=== PATIENT | male | born 1965 | race Caucasian/White ===

== ENCOUNTER 2018-07-05 13:01 | Inpatient (IN) | payer MEDICARE, MEDICAID ==
[~2018-07-05] VITALS: Ht 172.7 cm; Wt 126.6 kg
--- NOTE | 2018-07-05 13:05 | NUR ---
[facility] , AMS MORE THAN NORMAL BS 129 FINISHED DIALYSIS , PT ALSO C/O CHILLS. TO ER BED 9, HOOKED TO MONITOR, CHANGED TO GOWN, AWAITING MD GRAJEDA
[2018-07-05 13:28] LABS: BASOPHILS # (AUTO) 0.1 /CMM (0.0-0.2); EOSINOPHILS % (AUTO) 6.3 % (0.0-6.0); HEMATOCRIT 37 % (39-51); HEMOGLOBIN 11.7 g/dL (13.5-17.5); LYMPHOCYTES % (AUTO) 13.5 % (20.0-44.0); MEAN CORPUSCULAR HGB CONC 32 g/dl (31.0-36.0); MEAN CORPUSCULAR VOLUME 94 fL (80-96); MONOCYTES # (AUTO) 0.5 /CMM (0.1-1.30); MONOCYTES % (AUTO) 6.6 % (2.0-12.0); NEUTROPHILS # (AUTO) 5.6 /CMM (1.8-8.9); NEUTROPHILS % (AUTO) 72.6 % (43.0-81.0); PLATELET COUNT (AUTO) 131 /CMM (150-450); WHITE BLOOD COUNT (AUTO) 7.7 K/uL (4.3-11.0)
[2018-07-05] MEDS ORDERED: VANCOMYCIN 1 GM in IV D5W 250 ML IV ONE (13:30)
[2018-07-05] MEDS ORDERED: IV NS 0.9% 500 ML BAG IV ONE (13:30)
[2018-07-05 13:47] LABS: CALCIUM, SERUM 8.2 mg/dL (8.5-10.1); CREATININE 5.1 mg/dL (0.6-1.3); POTASSIUM 4.6 mmol/L (3.5-5.1)
[2018-07-05 13:51] LABS: ALBUMIN 3.7 g/dL (3.4-5.0); BILIRUBIN,DIRECT 0.1 mg/dL (0.0-0.2); BILIRUBIN,TOTAL 0.3 mg/dL (0.2-1.0); TOTAL PROTEIN, SERUM 7.5 g/dL (6.4-8.2)
[2018-07-05] MEDS ORDERED: SENN-168 PO (14:58)
[2018-07-05] MEDS ORDERED: CARV12.52 PO (14:58)
[2018-07-05] MEDS ORDERED: ATOR10TA PO (14:58)
[2018-07-05] MEDS ORDERED: LOSA25TA27 PO (14:58)
[2018-07-05] MEDS ORDERED: ACID1TAB12 PO (14:58)
[2018-07-05] MEDS ORDERED: INSU100V10 SQ (14:58)
[2018-07-05] MEDS ORDERED: CLON0.1T PO (14:58)
[2018-07-05] MEDS ORDERED: POLY17PO4 PO (14:58)
[2018-07-05] MEDS ORDERED: PROM6.256 PO (14:58)
[2018-07-05] MEDS ORDERED: FOLI0.8T23 PO (14:58)
[2018-07-05] MEDS ORDERED: PANT40TA2 PO (14:58)
[2018-07-05] MEDS ORDERED: CALC667C6 PO (14:58)
[2018-07-05] MEDS ORDERED: GABA-532 PO (14:58)
[2018-07-05] MEDS ORDERED: ASPI-1169 PO (14:58)
[2018-07-05] MEDS ORDERED: IPRA3AMP23 NEB (15:00)
[2018-07-05] MEDS ORDERED: INSU100I4 SQ (15:00)
[2018-07-05] MEDS ORDERED: ASPIRIN 325 MG TABLET ONE (15:10)
[2018-07-05 15:16] LABS: APPEARANCE,URINE SL CLOUDY (CLEAR); BILIRUBIN,URINE NEGATIVE (NEGATIVE); BLOOD, URINE 2+ Ery/uL (NEGATIVE); COLOR,URINE YELLOW (YELLOW); KETONES,URINE NEGATIVE (NEGATIVE); LEUKOCYTE ESTERASE ,URINE TRACE (NEGATIVE); NITRITE, URINE NEGATIVE (NEGATIVE); PH,URINE 5.5 (5.0-8.0); PROTEIN,URINE 3+ mg/dl (NEGATIVE); UGLUCOSE NEGATIVE (NEGATIVE); UROBILINOGEN,URINE 0.2 EU/dL (0.2)
--- NOTE | 2018-07-05 15:16 | NUR ---
PAGED EPIC FOR ADMITTING HOSPITALIST
[2018-07-05] MEDS ORDERED: ASPIRIN 325 MG TABLET PO ONE (15:30)
[2018-07-05 15:34] LABS: BACTERIA,URINE Rare /HPF (None Seen)
[2018-07-05 15:35] LABS: SQUAMOUS EPITHELIAL CELL,UR Few /HPF (None Seen)
[2018-07-05] MEDS ORDERED: PROMETHAZINE HCL SYRUP 6.25 MG/5 ML UDC PO PRN (16:00)
[2018-07-05] MEDS ORDERED: CLONIDINE HCL 0.1 MG TABLET PO PRN (16:00)
[2018-07-05] MEDS ORDERED: DEXTROSE 50%-WATER 50 ML DISP.SYRIN IV PRN (16:00)
[2018-07-05] MEDS ORDERED: MAG HYDROX/AL HYDROX/SIMETH 30 ML UDC PO PRN (16:00)
[2018-07-05] MEDS ORDERED: ACETAMINOPHEN 325 MG TABLET PO PRN (16:00)
[2018-07-05] MEDS ORDERED: ONDANSETRON HCL/PF 4 MG/2 ML VIAL IVP PRN (16:00)
[2018-07-05] MEDS ORDERED: MAGNESIUM HYDROXIDE 30 ML UDC PO PRN (16:00)
[2018-07-05] MEDS ORDERED: Z GUARD REMEDY 2 OZ OINT TP PRN (16:00)
[2018-07-05] MEDS ORDERED: POLYETHYLENE GLYCOL 3350 17 GM POWD.PACK PO PRN (16:00)
--- NOTE | 2018-07-05 16:06 | NUR ---
REPORT GIVEN TO SANDRA GARCIA, TO ROOM 111-2, ADMITTING DX: CHEST PAIN, ADMITTING MD: TRACI ALY
[2018-07-05] MEDS ORDERED: IPRATROPIUM NEB FS 0.5 MG/2.5 ML AMPUL.NEB NEB PRN (16:30)
--- NOTE | 2018-07-05 16:30 | NUR ---
LENS SILVERER PATIENT RECEIVED FROM E.R. DEPT. A/OX4, DENIES CHEST PAIN. SKIN ASSESSMENT COMPLETED, SKIN DRY AND INTACT, NOTED WITH BLE EDEMA +3. PATIENT IN NO DISTRESS. NEEDS ATTENDED, CALL LIGHT WITHIN REACH, WILL CONTINUE TO MONITOR.
[2018-07-05] MEDS: CARVEDILOL 12.5 MG TABLET PO SCH (17:00)
[2018-07-05] MEDS: LOSARTAN POTASSIUM 25 MG TABLET PO SCH (17:00)
[2018-07-05] MEDS: GABAPENTIN 100 MG CAPSULE PO SCH (18:03)
[2018-07-05] MEDS: SENNOSIDES 8.6 MG TABLET PO SCH (18:04)
[2018-07-05] MEDS: CALCIUM ACETATE 667 MG TABLET PO SCH (18:04)
[2018-07-05] MEDS: BLOOD SUGAR DIAGNOSTIC 1 EACH STRIP IN SCH ×2 (18:04→22:00)
--- NOTE | 2018-07-05 18:46 | NUR ---
INITIAL ECHO FINDINGS SHOWED EF 25-30%~ W/ SEVERE PULM HTN 56mmHg. ADVISED JOSE FLORES AND CHARGE NURSE SOON OF PRELIMINARY RESULTS.
--- NOTE | 2018-07-05 19:00 | NUR ---
RN NOTES PAGED TRACI DELATORRE TONGUE LINING STITCHER AND MADE AWARE OF EF 25-30%, PER TONGUE LINING STITCHER, PATIENT NEEDS CARDIO CONSULT.
--- NOTE | 2018-07-05 19:10 | NUR ---
RN NOTES PATIENT A/OX4, BREATHING EVEN AND UNLABORED, NO SOB NOTED, AT BEDSIDE, KEPT COMFORTABLE, ATE DINNER, DENIES CHEST PAIN AT THIS TIME. NEEDS ATTENDED AND MET, CALL RUTH ORTIZ, [facility]
[2018-07-05] MEDS ORDERED: ALBUTEROL FS 2.5 MG/0.5 ML VIAL.NEB NEB PRN (19:30)
--- NOTE | 2018-07-05 19:47 | NUR ---
RN OPENING NOTES RECEIVED PT IN BED, AWAKE ALERT AND ORIENTED X4, WITH AND SON AT BEDSIDE. BREATHING EVEN AND UNLABORED ON 2L NC SATING AT 98. IV ACCESS ON THE R FA g20 SL PATENT AND FLUSHING. BED IN LOWEST LOCKED POSITION, CALL LIGHT WITHIN REACH AT ALL TIMES, WILL CONTINUE TO MONITOR
[2018-07-05] MEDS: ATORVASTATIN 10 MG TABLET PO SCH (21:09)
[2018-07-05] MEDS: PANTOPRAZOLE 40 MG TABLET.DR PO SCH (21:10)
[2018-07-05] MEDS: HEPARIN SODIUM, PORCINE 5000 UNITS/1 ML VIAL SQ SCH (21:11)
[2018-07-05] MEDS: INSULIN REGULAR, HUMAN 100 UNIT/ML 3 ML VIAL SQ PRN (21:12)
[2018-07-05] MEDS: INSULIN GLARGINE, 100 UNIT/ML CARTRIDGE SQ SCH (21:12)
[2018-07-05] MEDS ORDERED: MENTHOL/CETYLPYRD (CEPACOL) 1 LOZ LOZENGE PO PRN (22:00)
[2018-07-05] MEDS ORDERED: TEMAZEPAM 7.5 MG CAPSULE PO PRN (22:00)
[2018-07-06] VITALS (51 sets, daily range): BP systolic 83–187; BP diastolic 29–117
[2018-07-06] MEDS: HYDROCODONE/APAP 5/325MG 1 EACH TABLET PO PRN (01:38)
--- NOTE | 2018-07-06 03:30 | NUR ---
HERBARIUM CURATOR NOTE PT PRESENTED WITH INCREASED CONFUSION, RESTLESSNESS AND DESATURATING TO THE LOW 80'S ON 2 L NC, BREATHING TREATMENT GIVEN BY RT WHO RECOMMENDED ABG BE DRAWN, PAGED MD SANITATION LABORER AND GOT STAT ABG ORDER. VENOUS WAS DRAWN INSTEAD OF ARTERIAL, CO2 WAS 83. HR MOMENTARILY WENT DOWN TO THE LOW 40s AND THEN BACK UP TO 60-70s A FEW TIMES. TRANSFERRED PT TO ICU ROOM 257, TO PLACE PT ON BIPAP, MD AWARE. REPORT GIVEN TO JOSE EID
--- NOTE | 2018-07-06 03:44 | NUR ---
ICU/RN-RECEIVED PT. FROM TELE-1 VIA BED PER ACLS, ACCOMPANIED BY RTS AND TELE STAFF. NURSING FOCUS:ALTERED RESPIRATORY STATUS R/T DIAGNOSIS. PT. IS LETHARGIC , AROUSABLE ORIENTED TO SELF, ABLE TO FOLLOW SIMPLE COMMANDS, NOT IN ANY DISTRESS. PT. IMMEDIATELY HOOKED UP BY RT TO THE BIPAP W/ THE FOLLOWING SETTINGS:I/E-20/5, RATE-20. FIO2-35%, SATS.-97%, NOT IN ANY DISTRESS. EKG ATRIAL FIB W/ HR-66. WILL CONTINUE TO MONITOR PER PROTOCOL. WILL RECHECK ABGS IN 30 MINS. AND WILL REFER ACCORDINGLY NEEDED. PT. IS A FULL CODE. DENIES PAIN OR DISCOMFORT. AFEBRILE. TEMPT.-98.1/F
[2018-07-06 03:54] LABS: ABG BASE EXCESS 2.3 mmol/L; ABG PCO2 83.5 mmHg (35.0-45.0); ABG PH 7.206 (7.350-7.450); ABG PO2 31.8 mmHg (75.0-100.0); COHb 1.2 % (0.5-1.5); MetHb 0.4 % (0.0-1.5); O2Hb 55.1 % (94.0-97.0); SITE, ABG Right Radial
--- NOTE | 2018-07-06 03:56 | NUR ---
PT ARRIVED ALTERED FROM [facility] AND WAS TRANSFERRED TO ICU, WHERE HE WAS PLACED ON BIPAP PER MD YANG ORDER, BIPAP SETTING: I/E 20/5 RATE 20 FIO2 30%. SKIN BARRIER APPLIED ON BRIDGE OF NOSE. CHARGE NURSE MARGARITO AWARE, PT TOLERATING BIPAP AND WILL CONTINUE TO MONITOR Addendum: 07/06/18 at 0405 by REBECA BAUM RT Amended: Links added.
--- NOTE | 2018-07-06 03:56 | NUR ---
RT BLOOD DRAWN WAS VENOUS BLOOD AND NOT ARTERIAL. MD AND RN AWARE. PER MD ORDERS PLACE PT ON BIPAP AND FOLLOW UP ABG.
--- NOTE | 2018-07-06 04:00 | NUR ---
ICU/RN- SISTER ANN HERE TO SEE PT. SPOKE TO SAME THE PLAN OF CARE AND PT. STATUS. SAME CONCERNABOUT PT. STATUS AND ABDOMINAL DISCOMFORT. ON ASSESSMENT. ABDOMEN IS SLIGHTLY FIRM AND DISTENDED W/ HYPOACTIVE BOWEL SOUNDS. WILL CONTINUE TO MONITOR AND REFER NEEDED.
--- NOTE | 2018-07-06 04:00 | NUR ---
ORDERS FOR RESTORIL AND LOZENGES BUT UNDER WRONG MD, D/Keron AND REORDERED BY CORRECT CDL PROGRAM COORDINATOR MD, RESTORIL GIVEN UNDER THE WRONG MD.
[2018-07-06] MEDS ORDERED: TEMAZEPAM 7.5 MG CAPSULE PO PRN (04:30)
[2018-07-06] MEDS ORDERED: MENTHOL/CETYLPYRD (CEPACOL) 1 LOZ LOZENGE PO PRN (04:30)
--- NOTE | 2018-07-06 04:40 | NUR ---
ICU/RN- RT DAVID HERE TO DRAW BLOOD FOR ABGS ON PT.
[2018-07-06 04:44] LABS: ABG BASE EXCESS -0.4 mmol/L; ABG OXYGEN SATURATION 92.1 % (92.0-98.5); ABG PCO2 86.5 mmHg (35.0-45.0); ABG PH 7.162 (7.350-7.450); ABG PO2 77.1 mmHg (75.0-100.0); AaDO2 71.9 mmHg; COHb 1.1 % (0.5-1.5); MetHb 0.3 % (0.0-1.5); O2Hb 90.8 % (94.0-97.0); PEEP,BG 5 cm H2O; SITE, ABG Right Radial; VENT MODE, BG BIPAP
--- NOTE | 2018-07-06 05:00 | NUR ---
ICU/RN-DR. DOCKERY ER TO INTUBATE PT. ON ASSESSMENT SAME MD STATED, THAT DUE TO PT H/O TRACH AND PT. NECK ANATOMY, WOULD REQUEST ANESTHESIA TO INTUBATE PT. DR. MCCLURE SPOKE TO NURSING SUP. SILVA AND WILL NOTIFY ANESTHESIA THERMODYNAMICS TEACHER ROLAN. PT. REMAINS VERY LETHARGIC, ON BIPAP FIO2-100%. SATS-97%, NOT IN ANY DISTRESS.
--- NOTE | 2018-07-06 05:00 | NUR ---
ICU/RN- DR. YANG NOTIFIED OF PT. ABGS RESULTS, WORST THAN PRIOR. W/ ORDERS TO INTUBATE PT. BY ER MD AND PULMONARY CONSULT.
--- NOTE | 2018-07-06 05:58 | NUR ---
PT WAS ORALLY INTUBATED BY ANESTHESIA DR ROSARIO WITH A 7.5 ETT @ 25CM LIPLINE, POSITIVE COLOR CHANGE ON CAP, BILATERAL BREATH SOUNDS AND CHEST RISE. PT WAS PLACED ON [facility] VENT AC R 22 VT 550 100%O2 PEEP +5. PT AMBU BAG AT BEDSIDE, [facility] VENT ALARMS ARE SET AND AUDIBLE, BRAKES LOCKED, AND VENT PLUGGED INTO RED OUTLET. PT WAS SUCTIONED APPROX 10CC OF THICK GOOD SECRETIONS DRAWN. JOSE PIMENTEL MADE AWARE OF SETTINGS AND WAS ALSO NOTIFIED THAT SPUTUM WAS COLLECTED. PENDING XRAY REPORT AND POST INTUBATION ABG. WILL NOTIFY THE FOLLOWING THERAPIST TO DRAW GAS Addendum: 07/06/18 at 0646 by REBECA BAUM RT Amended: Links added.
[2018-07-06 06:07] LABS: BASOPHILS # (AUTO) 0.1 /CMM (0.0-0.2); EOSINOPHILS % (AUTO) 6.8 % (0.0-6.0); HEMATOCRIT 39 % (39-51); HEMOGLOBIN 12.2 g/dL (13.5-17.5); LYMPHOCYTES % (AUTO) 13.5 % (20.0-44.0); MEAN CORPUSCULAR HGB CONC 32 g/dl (31.0-36.0); MEAN CORPUSCULAR VOLUME 95 fL (80-96); MONOCYTES # (AUTO) 0.4 /CMM (0.1-1.30); MONOCYTES % (AUTO) 5.2 % (2.0-12.0); NEUTROPHILS # (AUTO) 5.5 /CMM (1.8-8.9); NEUTROPHILS % (AUTO) 73.5 % (43.0-81.0); PLATELET COUNT (AUTO) 146 /CMM (150-450); RED BLOOD CELL COUNT(AUTO) 4.11 MIL/uL (4.5-6.0); WHITE BLOOD COUNT (AUTO) 7.5 K/uL (4.3-11.0)
--- NOTE | 2018-07-06 06:10 | NUR ---
ICU/RN- PCXR POST INTUBATION DONE BY RADIOLOGY.
--- NOTE | 2018-07-06 06:15 | NUR ---
ICU/RN- PT. STARTED GETTING AGITATED, DR. BARROW NOTIFIED BY PHONE, REGARDING PT. STATUS AND CONSULT W/ ORDERS FOR DIPRIVAN DRIP AND MARTHA. SOFT WRIST RESTRAINTS NEEDED PER PROTOCOL.
--- NOTE | 2018-07-06 06:18 | NUR ---
ICU/RN- PT. REMAINS AGITATED, MARTHA. SOFT WRIST RESTRAINTS APPLIED TO MARTHA. WRIST. DIPRIVAN DRIP STARTED AT 5 MCG/KG/IN. PER PROTOCOL. WILL TITRATE TO EFFECT.
[2018-07-06] MEDS: PROPOFOL 100 ML IV PRN ×3 (06:23→21:33)
[2018-07-06 06:30] LABS: CALCIUM, SERUM 8.7 mg/dL (8.5-10.1); CREATININE 6.7 mg/dL (0.6-1.3); MAGNESIUM 2.3 mg/dL (1.8-2.4); PHOSPHORUS 7.4 mg/dL (2.5-4.9); POTASSIUM 5.7 mmol/L (3.5-5.1)
[2018-07-06 06:40] LABS: THYROID STIMULATING HORMONE 1.949 uIU/mL (0.358-3.74)
--- NOTE | 2018-07-06 07:10 | NUR ---
RN INITIAL NOTES RECEIVED PT INTUBATED, ON VENT. NO RESPIRATORY DISTRESS NOTED. NO SOB NOTED. HOB ELEVATED. RIJ PERMACATH IN PLACE. ON DIPRIVAN AT 2.5MCG/KG/MIN. PT NPO. PT CLEAN AND DRY. BLE ELEVATED. WILL MONITOR.
[2018-07-06 07:36] LABS: ABG BASE EXCESS -0.4 mmol/L; ABG OXYGEN SATURATION 98.6 % (92.0-98.5); ABG PCO2 52.1 mmHg (35.0-45.0); ABG PO2 302.4 mmHg (75.0-100.0); AaDO2 358.5 mmHg; COHb 0.2 % (0.5-1.5); MetHb 0.4 % (0.0-1.5); PEEP,BG 5 cm H2O; SITE, ABG Left Radial; VENT MODE, BG AC 22 550 100% +5; VT, ABG 550 mL
[2018-07-06] MEDS: BLOOD SUGAR DIAGNOSTIC 1 EACH STRIP IN SCH ×4 (08:29→21:16)
[2018-07-06] MEDS: HEPARIN SODIUM, PORCINE 5000 UNITS/1 ML VIAL SQ SCH ×2 (08:30→21:18)
--- NOTE | 2018-07-06 08:52 | NUR ---
RT NOTE RECEIVED PT MECHANICALLY VENTILATED VIA 7.5 ETT 25CM AT LIP. CUFF INFLATED. ETT SECURE. SETTINGS FOLLOW AC 22 550 100% +5. FIO2 LOWERED TO 50% POST ABG. RN NOTIFIED. ALARMS SET PER PROTOCOL AND AUDIBLE. VENT PLUGGED IN TO RED OUTLET. AMBU BAG AT BED SIDE. NO DISTRESS NOTED AT MOMENT. Addendum: 07/06/18 at 0855 by SABA LAZAR RT Amended: Links added.
[2018-07-06] MEDS: ACIDOPHILUS/BULGARICUS 1 EACH TAB.CHEW PO SCH (09:00)
[2018-07-06] MEDS: VIT B CMPLX 3/FA/VIT C/BIOTIN 1 TAB TABLET PO SCH (09:00)
[2018-07-06] MEDS: ASPIRIN 81 MG TAB.CHEW PO SCH (09:00)
[2018-07-06] MEDS: SENNOSIDES 8.6 MG TABLET PO SCH ×2 (09:00→16:17)
[2018-07-06] MEDS: LOSARTAN POTASSIUM 25 MG TABLET PO SCH ×2 (09:00→16:17)
[2018-07-06] MEDS: PANTOPRAZOLE 40 MG TABLET.DR PO SCH ×3 (09:00→21:16)
[2018-07-06] MEDS: CALCIUM ACETATE 667 MG TABLET PO SCH ×3 (09:00→16:17)
[2018-07-06] MEDS: GABAPENTIN 100 MG CAPSULE PO SCH ×3 (09:00→16:17)
[2018-07-06] MEDS: CARVEDILOL 12.5 MG TABLET PO SCH ×2 (09:00→16:17)
--- NOTE | 2018-07-06 09:37 | NUR ---
RN NOTES 0815 SEEN AND EXAMINED BY DR MCINTOSH. REVIEWED H&P, CURRENT LAB VALUES AND CXR RESULT. PT INTUBATED, ON VENT. NO SOB NOTED. ON DIPRIVAN AT 2.5MCG/KG/MIN. PT ABLE TO FOLLOW SIMPLE COMMANDS. UNABLE TO INCREASE DIPRIVAN D/T FLUCTUATING BP AND HR. WILL MONITOR. 0845 SEEN AND EXAMINED BY TRACI DELATORRE NP. AWARE OF CURRENT LAB VALUES: POTASSIUM 5.7, BUN 55, CREA 6.7. PT ON HD. WILL CONTINUE TO MONITOR 0900 SEEN AND EXAMINED BY DR REMY. AWARE OF PT'S STATUS. PT INTUBATED, ON VENT. NO SOB NOTED. PT ON DIPRIVAN. WILL CONTINUE TO MONITOR 0930 SEEN AND EXAMINED BY DR TEE WOLF. ORDERED HD TODAY AND BLOOD CX WITH HD.
[2018-07-06] MEDS ORDERED: FEE PK DOSING 1 MIN EA MC ONE (10:49)
[2018-07-06] MEDS ORDERED: VANCOMYCIN 1 GM in IV D5W 250 ML IV ONE ×2 (11:00→14:00)
[2018-07-06] MEDS ORDERED: VANCOMYCIN 500 MG in IV D5W 100 ML IV PRN (11:00)
[2018-07-06] MEDS ORDERED: FEE EMEERGENCY 1 MIN EA MC ONE (12:07)
[2018-07-06] MEDS ORDERED: SUCCINYLCHOLINE CHLORIDE 20 MG/ML VIAL IV ONE (12:07)
[2018-07-06] MEDS ORDERED: ETOMIDATE 2 MG/ML VIAL IV ONE (12:07)
--- NOTE | 2018-07-06 14:00 | NUR ---
RN NOTES 1000 HD STARTED. VS WNL. WILL MONITOR. 1400 HD DONE. REMOVED 3L. TOLERATED HD WELL. VS WNL. WILL CONTINUE TO MONITOR.
[2018-07-06] MEDS ORDERED: ACETAMINOPHEN 650 MG/SUPP.RECT RC PRN (15:00)
[2018-07-06] MEDS: PIPERACILLIN /TAZOBACTAM 2.25 G in IV D5W 50 ML IV SCH (16:20)
--- NOTE | 2018-07-06 18:28 | NUR ---
RN CLOSING NOTES NO SIGNIFICANT CHANGE NOTED. PT REMAINS INTUBATED, ON VENT. NO RESPIRATORY DISTRESS NOTED. ON DIPRIVAN, TITRATED ACCORDINGLY. MIDLINE IN PLACE. KEPT CLEAN AND DRY. REPOSITIONED Q2. KEPT COMFORTABLE. WILL ENDORSE FOR CONTINUITY OF CARE.
[2018-07-06] MEDS: IPRATROPIUM NEB FS 0.5 MG/2.5 ML AMPUL.NEB NEB SCH (19:38)
[2018-07-06] MEDS: ALBUTEROL FS 2.5 MG/0.5 ML VIAL.NEB NEB SCH (19:38)
--- NOTE | 2018-07-06 19:38 | NUR ---
RECEIVED PT INTUBATED 7.5 ETT SECURED@ 25CM AT THE LIP, PT IS SEDATED. NO RESP DISTRESS NOTED AT THIS TIME. PT TOLERATING VENT SETTINGS. BREATHING TX GIVEN , NO ADVERSE REACTION NOTED. SUCTIONED MODERATE AMOUNT OF PALE YELLOW/GOOD SECRETIONS. VENT ALARMS SET AND AUDIBLE. AMBU BAG AT BEDSIDE. ETT SECURE, CUFF MANPOWER DEVELOPMENT MANAGER. WILL CONTINUE TO MONITOR.
--- NOTE | 2018-07-06 19:45 | NUR ---
ICU/ORDER EXPEDITER RECEIVED REPORT FROM DAY NURSE. SEE FLOWSHEET FOR ASSESSMENT, THERE IS NO SKIN ISSUES THAT ARE ADDRESSED.PT WAS TURNED AND REPOSITIONED FOR COMFORT AND CARE. PT APPEARS TO BE COMFORTABLE ON 20MCG OF SEDATION. .
[2018-07-06] MEDS: ATORVASTATIN 10 MG TABLET PO SCH ×2 (21:16→22:00)
[2018-07-06] MEDS: INSULIN GLARGINE, 100 UNIT/ML CARTRIDGE SQ SCH (21:17)
--- NOTE | 2018-07-06 21:50 | NUR ---
ICU/TRANSFORMATION LEAD PT'S BLOOS SUGAR IS 85, THERE IS NO COVERAGE FOR THIS AND LANTUS WAS HELD DUE TO THE PT IS CURRENTLY NPO. WILL CONTINUE TO MONITOR THIS PT'S SUGAR ORDERED PER MD ORDERS.
[2018-07-07] VITALS (35 sets, daily range): BP systolic 99–177; BP diastolic 45–124
[2018-07-07] MEDS: PIPERACILLIN /TAZOBACTAM 2.25 G in IV D5W 50 ML IV SCH ×4 (00:17→23:38)
--- NOTE | 2018-07-07 00:30 | NUR ---
ICU/VENDING SERVICE TECHNICIAN PT'S BLOOD SUGAR IS 94, THERE IS NO COVERAGE FOR THIS. THE LANTUS FROM 2199 WAS HELD DUE TO THE PT IS CURRENTLY NPO. WILL CONTINUE TO MONITOR THIS PT'S SUGAR ORDERED PER MD ORDERS.
[2018-07-07] MEDS: MORPHINE SULFATE INJ 4 MG/ML DISP.SYRIN IV PRN ×2 (00:58→05:02)
--- NOTE | 2018-07-07 01:02 | NUR ---
ICU/BENEFITS ANALYST PO MEDICATION NOT GIVEN DUE TO NO NGT OR GT. THESE WERE NOT ADMINISTERED ON THE SEP.
--- NOTE | 2018-07-07 01:03 | NUR ---
ICU/SENIOR ADVISORY USING FLACC SCALE, PT'S PAIN IS 8/10. MORPHINE IVP WAS GIVEN BY CHARGE NURSE WHO WAS INFORMED ABOUT THE CHANGE IN PT'S STATUS. PT WAS TURNED AND REPOSITIONED FOR COMFORT AND CARE. WILL CONTINUE TO MONITOR PT'S PAIN LEVEL. ALSO BLOOD PRESSURE INCREASED TO 170/93.
[2018-07-07] MEDS: ALBUTEROL FS 2.5 MG/0.5 ML VIAL.NEB NEB SCH ×4 (01:33→19:53)
[2018-07-07] MEDS: IPRATROPIUM NEB FS 0.5 MG/2.5 ML AMPUL.NEB NEB SCH ×4 (01:33→19:53)
[2018-07-07] MEDS: PROPOFOL 100 ML IV PRN (02:58)
--- NOTE | 2018-07-07 04:10 | NUR ---
ICU/PLSQL DEVELOPER RT DECREASED FIO2 DOWN TO 40 FROM 50. TODAY PT IS GOING TO BE WINGED FROM A/C TO SIMV
--- NOTE | 2018-07-07 04:39 | NUR ---
ICU/COLD REDUCTION ROLLER PT BECAME SOMEWHAT RESTLESS AFTER BATH, NOTIFIED CHARGE NURSE ABOUT THIS. SEDATION WAS INCREASED TO 25 FROM 20 MCG. WILL CONTINUE TO MONITOR THIS PT.
--- NOTE | 2018-07-07 05:08 | NUR ---
ICU/MANAGER APPLICATION PT'S WAS TURNED AND REPOSITIONED, HOWEVER PT'S BLOOD PRESSURE INCREASED TO 177/70. PT APPEARS TO BE IN PAIN. FLACC SCALE USED TO DETERMIN THAT PAIN IS 8-10/10. NOTIFIED CHARGE NURSE WHO THEN GAVE PRN MORPHINE IVP FOR THIS. WILL CONTINUE TO MONITOR PT'S PAIN LEVEL.
[2018-07-07 05:15] LABS: POTASSIUM 4.5 mmol/L (3.5-5.1)
[2018-07-07 05:23] LABS: CALCIUM, SERUM 8.8 mg/dL (8.5-10.1)
[2018-07-07] MEDS: BLOOD SUGAR DIAGNOSTIC 1 EACH STRIP IN SCH ×4 (05:55→23:45)
--- NOTE | 2018-07-07 05:56 | NUR ---
ICU/PATTERN DUPLICATOR PT'S BLOOD SUGAR IS 107, THERE IS NO COVERAGE FOR THIS. WILL CONTINUE TO MONITOR THIS PT'S SUGAR ORDERED PER MD ORDERS.pt was turned and repositioned for comfort and care
--- NOTE | 2018-07-07 07:15 | NUR ---
RN INITIAL NOTES: Rec'd pt on bed, not in any distress, sedated at this time. On MV via ETT, sating at 98%. On telemonitor, Afib controlled. Has R IJ permacath, HD started c/o Bill. Has ROMY midline G18 patent & intact w/ Diprivan at 25 mcg infusing well. Has RFA G20, SL. Safety precautions in place. Call light w/in reach. Will continue to monitor & attend pt needs.
--- NOTE | 2018-07-07 08:00 | NUR ---
Pt off sedation. Pt is calm & cooperative, follows simple commands. Started on SIMV c/o RT, will closely monitor. Verbalized understanding of weaning process.
--- NOTE | 2018-07-07 08:30 | NUR ---
RT NOTE RECEIVED PT MECHANICALLY VENTILATED VIA 7.5 ETT 25 CM AT LIP. CUFF INFLATED. ETT SECURE. VENTILATOR SETTINGS PRESCRIBED. ALARMS SET PER PROTOCOL AND AUDIBLE. VENT PLUGGED IN TO RED OUTLET. AMBU BAG AT BED SIDE. NO DISTRESS NOTED AT MOMENT. PT PLACED ON SIMV MODE PER MD ORDER. PT RESPONSIVE. RN NOTIFIED. WILL CONTINUE TO MONITOR. Addendum: 07/07/18 at 0832 by SABA LAZAR RT Amended: Links added.
[2018-07-07 08:45] LABS: BASOPHILS # (AUTO) 0.1 /CMM (0.0-0.2); BASOPHILS % (AUTO) 0.8 % (0.0-2.0); EOSINOPHILS % (AUTO) 5.5 % (0.0-6.0); HEMATOCRIT 35 % (39-51); HEMOGLOBIN 11.4 g/dL (13.5-17.5); LYMPHOCYTES # (AUTO) 0.7 /CMM (0.8-4.8); LYMPHOCYTES % (AUTO) 9.1 % (20.0-44.0); MEAN CORPUSCULAR HGB CONC 32 g/dl (31.0-36.0); MEAN CORPUSCULAR VOLUME 93 fL (80-96); MONOCYTES # (AUTO) 0.4 /CMM (0.1-1.30); MONOCYTES % (AUTO) 5.2 % (2.0-12.0); NEUTROPHILS # (AUTO) 6.6 /CMM (1.8-8.9); NEUTROPHILS % (AUTO) 79.4 % (43.0-81.0); PLATELET COUNT (AUTO) 125 /CMM (150-450); RED BLOOD CELL COUNT(AUTO) 3.79 MIL/uL (4.5-6.0); WHITE BLOOD COUNT (AUTO) 8.2 K/uL (4.3-11.0)
[2018-07-07] MEDS: CARVEDILOL 12.5 MG TABLET PO SCH ×2 (08:56→17:35)
[2018-07-07] MEDS: ASPIRIN 81 MG TAB.CHEW PO SCH (08:56)
[2018-07-07] MEDS: GABAPENTIN 100 MG CAPSULE PO SCH ×3 (08:56→17:35)
[2018-07-07] MEDS: VIT B CMPLX 3/FA/VIT C/BIOTIN 1 TAB TABLET PO SCH (08:56)
[2018-07-07] MEDS: ACIDOPHILUS/BULGARICUS 1 EACH TAB.CHEW PO SCH (08:56)
[2018-07-07] MEDS: CALCIUM ACETATE 667 MG TABLET PO SCH ×3 (08:56→17:35)
[2018-07-07] MEDS: SENNOSIDES 8.6 MG TABLET PO SCH ×2 (08:56→17:35)
[2018-07-07] MEDS: LOSARTAN POTASSIUM 25 MG TABLET PO SCH ×2 (08:56→17:36)
[2018-07-07] MEDS: PANTOPRAZOLE 40 MG VIAL IV SCH ×2 (09:11→21:08)
[2018-07-07] MEDS: HEPARIN SODIUM, PORCINE 5000 UNITS/1 ML VIAL SQ SCH ×2 (09:13→21:18)
[2018-07-07] MEDS ORDERED: DC PROPOFOL WHEN EXTUBATED XX PRN (10:00)
--- NOTE | 2018-07-07 10:50 | NUR ---
Per RT ABG results reviewed by Dr. Spence w/ orders to extubate pt. Extubation done c/o RT. Pt is A/O x3, cooperative, not in any distress, denies any pain/discomfort at this time. Dr. Spence made aware. Per MD may do bedside swallow eval.
--- NOTE | 2018-07-07 10:54 | NUR ---
RT NOTE PT EXTUBATED PER MD ORDER. PT AWAKE AND ALERT. EFFECTIVE COUGH. RESPONDS TO COMMANDS. PT ORALLY SUCTIONED. PT PLACED ON NC AT 3L WITH HUMIDIFIER. NO DISTRESS NOTED. RN NOTIFIED. VENT STANDBY AT BED SIDE. AMBU BAG AT BED SIDE. Addendum: 07/07/18 at 1057 by SABA LAZAR RT Amended: Links added.
[2018-07-07] MEDS: INSULIN REGULAR, HUMAN 100 UNIT/ML 3 ML VIAL SQ PRN ×3 (12:10→23:50)
--- NOTE | 2018-07-07 15:45 | NUR ---
Pt able to swallow thin liquids w/o difficulty. No sign of aspiration noted. Referred to [facility], ordered may start previous diet, soft texture w/ SAP.
--- NOTE | 2018-07-07 18:40 | NUR ---
RN CLOSING NOTES: Pt resting comfortably on his bed s/p extubation. VS WNL while on NC at 3lpm. Pt assisted w/ his dinner, able to eat 100%. Pt is oliguric, uses urinal. IV line access kept patent & intact w/ no s/sx of infection/infiltration noted. HD tolerated w/ 3500cc output. Pt kept well rested. Needs attended. Bed kept low & in locked pos. Call light placed w/in reach. Will endorse to PM RN for JOVI. Called pharmacy, spoke w/ Axel re: Vanco trough 22, will not give Vanco post HD.
--- NOTE | 2018-07-07 19:30 | NUR ---
ORCHID WORKER: RECEIVED PT ALERT, AWAKE ORIENTED X 3. ON 3L 02 VIA NC WT NO ACUTE DISTRESS AND ON S/P EXTUBATION. NO C/O PAIN. A. FIB CONTROLLED ON INDUSTRIAL HIRE SALES ASSISTANT. ABLE TO VOID ON URINAL WT TEA COLORED URINE. ROMY MIDLINE AND RT. CW HD CATH INTACT WT NO S/S OF COMPLICATIONS. PLACED ON HIGH GIRON'S. SAFETY PRECAUTION NOTED. WILL CONTINUE TO MONITOR.
[2018-07-07] MEDS: ATORVASTATIN 10 MG TABLET PO SCH (21:11)
[2018-07-07] MEDS: INSULIN GLARGINE, 100 UNIT/ML CARTRIDGE SQ SCH (21:22)
[2018-07-08] VITALS (18 sets, daily range): BP systolic 91–139; BP diastolic 44–79
[2018-07-08] MEDS: IPRATROPIUM NEB FS 0.5 MG/2.5 ML AMPUL.NEB NEB SCH ×4 (00:55→20:15)
[2018-07-08] MEDS: ALBUTEROL FS 2.5 MG/0.5 ML VIAL.NEB NEB SCH ×4 (00:56→20:15)
[2018-07-08 04:39] LABS: BASOPHILS # (AUTO) 0.1 /CMM (0.0-0.2); BASOPHILS % (AUTO) 0.8 % (0.0-2.0); EOSINOPHILS % (AUTO) 10.4 % (0.0-6.0); HEMATOCRIT 34 % (39-51); HEMOGLOBIN 11.1 g/dL (13.5-17.5); LYMPHOCYTES # (AUTO) 0.6 /CMM (0.8-4.8); LYMPHOCYTES % (AUTO) 8.1 % (20.0-44.0); MEAN CORPUSCULAR HGB CONC 32 g/dl (31.0-36.0); MEAN CORPUSCULAR VOLUME 92 fL (80-96); MONOCYTES # (AUTO) 0.6 /CMM (0.1-1.30); MONOCYTES % (AUTO) 7.6 % (2.0-12.0); NEUTROPHILS # (AUTO) 5.3 /CMM (1.8-8.9); NEUTROPHILS % (AUTO) 73.1 % (43.0-81.0); PLATELET COUNT (AUTO) 119 /CMM (150-450); RED BLOOD CELL COUNT(AUTO) 3.72 MIL/uL (4.5-6.0); WHITE BLOOD COUNT (AUTO) 7.3 K/uL (4.3-11.0)
[2018-07-08 04:53] LABS: CALCIUM, SERUM 8.6 mg/dL (8.5-10.1); CREATININE 7.3 mg/dL (0.6-1.3); MAGNESIUM 2.2 mg/dL (1.8-2.4); PHOSPHORUS 7.9 mg/dL (2.5-4.9); POTASSIUM 4.9 mmol/L (3.5-5.1)
--- NOTE | 2018-07-08 05:30 | NUR ---
[employer] SCOUT: NO SIGNIFICANT JOVI DURING THE SHIFT. REMAINED A/O X 3. ON 3L 02 VIA NC WT NO ACUTE DISTRESS. NO C/O PAIN. CONTROLLED A. FIB ON WEEKEND CAREGIVER. SAFETY PRECAUTION NOTED AT ALL TIMES.
--- NOTE | 2018-07-08 08:05 | NUR ---
INITIAL TELEPHONE INTERCEPTOR OPERATOR NOTE RCVD PT AWAKE AND ALERT TO SELF, PLACE. AFIB ON MONITOR. TOLERATING O2 VIA NC. EXTUBATED YESTERDAY NO ADVERSE EVENTS REPORTED OVER NIGHT. TOLERATING PO INTAKE WELL. DIALYSIS TO BE DONE TODAY. WILL CONTINUE TO MONITOR PT FOR SAFETY AND COMFORT. BED IN LOW AND LOCKED POSITION. CALL LIGHT WITHIN REACH.
[2018-07-08] MEDS: VIT B CMPLX 3/FA/VIT C/BIOTIN 1 TAB TABLET PO SCH ×2 (08:20→09:00)
[2018-07-08] MEDS: ASPIRIN 81 MG TAB.CHEW PO SCH ×2 (08:20→09:00)
[2018-07-08] MEDS: BLOOD SUGAR DIAGNOSTIC 1 EACH STRIP IN SCH ×4 (08:20→21:25)
[2018-07-08] MEDS: CALCIUM ACETATE 667 MG TABLET PO SCH ×3 (08:20→16:12)
[2018-07-08] MEDS: ACIDOPHILUS/BULGARICUS 1 EACH TAB.CHEW PO SCH ×2 (08:20→09:00)
[2018-07-08] MEDS: PANTOPRAZOLE 40 MG VIAL IV SCH ×2 (08:20→21:20)
[2018-07-08] MEDS: GABAPENTIN 100 MG CAPSULE PO SCH ×3 (08:20→16:13)
[2018-07-08] MEDS: PIPERACILLIN /TAZOBACTAM 2.25 G in IV D5W 50 ML IV SCH ×2 (08:20→16:12)
[2018-07-08] MEDS: LOSARTAN POTASSIUM 25 MG TABLET PO SCH ×2 (08:21→16:30)
[2018-07-08] MEDS: CARVEDILOL 12.5 MG TABLET PO SCH ×2 (08:21→16:30)
[2018-07-08] MEDS: HEPARIN SODIUM, PORCINE 5000 UNITS/1 ML VIAL SQ SCH ×2 (08:22→21:23)
[2018-07-08] MEDS: SENNOSIDES 8.6 MG TABLET PO SCH ×2 (08:22→16:13)
[2018-07-08] MEDS: ACETAMINOPHEN 325 MG TABLET PO PRN (09:39)
[2018-07-08] MEDS ORDERED: DEXTROSE 50%-WATER 50 ML DISP.SYRIN IV PRN (10:00)
--- NOTE | 2018-07-08 11:53 | NUR ---
PHONOGRAPH CARTRIDGE ASSEMBLER NOTE PT TRANSFERRED TO FIRST FLOOR UNDER TELE STATUS SHOWING NO S/O DISTRESS. DIALYSIS FINISHED WITH STABLE VITAL SIGNS IN FLOW-SHEET. REPORT GIVEN OVER THE PHONE TO JOSE GUZMAN AND AT BEDSIDE WHEN PT WAS TRANSPORTED. PT TRANSPORTED VIA BED PER PROTOCOL WITH SECOND RN AT BEDSIDE. PT'S BELONGINGS AND MEDICATIONS TAKEN WITH PT.
--- NOTE | 2018-07-08 12:10 | NUR ---
RECEIVED PATIENT FROM ICU TRANSPORTED BY JOSE CASAREZ. PATIENT IN STABLE CONDITION. A/OX2-3, ABLE TO MAKE NEEDS KNOWN. NO ACUTE DISTRESS, NO SOB. DENIED PAIN OR DISCOMFORT AT THE MOMENT. IV ACCESS IN TACT AND PATENT. ON 3LPM O2 VIA NC, TOLERATING WELL. PLACED ON TELE, HR 88 WITH AFIB. KEPT PATIENT SAFE AND COMFORTABLE. BED IN LOW/LOCKED POSITION, SIDERAILS UPX2, CALL LIGHT IN REACH. WILL CONTINUE TO MONITOR ACORDINLGLY.
--- NOTE | 2018-07-08 12:33 | NUR ---
RN NOTES VERIFIED WITH SADE PHARMACIST REGARDING VANCO PRD HD. PER SADE, PATIENT NEEDS VANCO TROUGH. VT ORDERED.
[2018-07-08] MEDS: APIXABAN 5 MG TABLET PO SCH ×2 (16:27→21:47)
--- NOTE | 2018-07-08 19:01 | NUR ---
RN CLOSING NOTES PATIENT IN STABLE CONDITION. ALL NEEDS ATTENDED AND PROVIDED. ALL DUE MEDICATIONS ADMINISTERED ORDERED. KEPT PATIENT SAFE AND COMFORTABLE. TURNED AND REPOSITION PATIENT EVERY 2HRS NEEDED. BED IN LOW/LOCKED POSITION, SIDERAILS UPX2 , CALL LIGHT IN REACH. ENDORSED TO NIGHT RN FOR JOVI
--- NOTE | 2018-07-08 19:46 | NUR ---
ROOM SERVER INITIAL NOTES, RECEIVED PATIENT IN BED AWAKE, A/O X3 ABLE TO VERBALIZE NEEDS AND CONCERNS, BREATHING EVEN AND UNLABORED, NO SOB/ACUTE DISTRESS NOTES AT THIS TIME, ROMY MIDLINE S/L, PATENT AND INTACT, ALL NEEDS ATTENDED AND PROVIDED, CALL LIGHT W/I REACH, BED IN LOW/LOCKED POSITION, SIDERAILS UPX2 , WILL CONTINUE TO MONITOR CLOSELY.
[2018-07-08] MEDS: ATORVASTATIN 10 MG TABLET PO SCH (21:20)
[2018-07-08] MEDS: INSULIN GLARGINE, 100 UNIT/ML CARTRIDGE SQ SCH (21:24)
[2018-07-08] MEDS: INSULIN REGULAR, HUMAN 100 UNIT/ML 3 ML VIAL SQ PRN (21:28)
[2018-07-08] MEDS ORDERED: LEVOFLOXACIN 250 MG /D5W 50 ML 250 MG in PREMIX 1 EA IV SCH (23:00)
[2018-07-08] MEDS ORDERED: LEVOFLOXACIN 250 MG /D5W 50 ML 50 ML IV ONE (23:39)
[2018-07-09] VITALS: BP 92/47
--- NOTE | 2018-07-09 00:30 | NUR ---
RN NOTES, INFORMED CHARGE NURSE THAT PATIENT HAS A NEW ORDER FOR GENTAMICIN 300MG IV AN DI NEED MEDICATION, CHARGE NURSE UNABLE TO OBTAINED AND FAXED ORDERED TO RN PROTECTION ANALYST., WILL F/U.
[2018-07-09] MEDS ORDERED: GENTAMICIN 300 MG in IV D5W 100 ML IV ONE (01:00)
--- NOTE | 2018-07-09 01:20 | NUR ---
RN NOTES, CALLED RN DISTRICT OR DISTRICT OFFICE DIRECTOR REGARDING GENTAMICIN ORDER, AND STATED SHE WILL CHECK AND BRING MEDICATION.
[2018-07-09] MEDS: ACETAMINOPHEN 325 MG TABLET PO PRN (01:23)
[2018-07-09] MEDS: ALBUTEROL FS 2.5 MG/0.5 ML VIAL.NEB NEB SCH ×4 (01:56→20:08)
[2018-07-09] MEDS: IPRATROPIUM NEB FS 0.5 MG/2.5 ML AMPUL.NEB NEB SCH ×4 (01:56→20:08)
[2018-07-09] MEDS ORDERED: GENTAMICIN 80 MG/2 ML VIAL ONE ×2 (02:14→02:22)
--- NOTE | 2018-07-09 02:30 | NUR ---
RN NOTES, ABOUT TO ADMINISTER GENTAMICIN AND SAW IN THE MAR A WARNING SIGN TO DO NOT ADMINISTER GENTAMICIN, TFO, CALLED PHARMACY SNUFF BLENDER AND CLARIFIED ORDER, AND PER MINORNG TO ADMINISTER GENTAMICIN ORDER X ONCE ONLY, NOTE AND CARRIED OUT.
[2018-07-09 04:00] VITALS: BP 97/50
--- NOTE | 2018-07-09 06:35 | NUR ---
MOLD DUMPER CLOSING NOTES, PATIENT IN BED SLEEPING AT THIS TIME, BREATHING EVEN AND UNLABORED, NO SOB/ACUTE DISTRESS NOTES AT THIS TIME, ROMY MIDLINE S/L, PATENT AND INTACT, ALL NEEDS ATTENDED AND PROVIDED, ALL MEDS DUE ADMINISTERED ORDERED, CALL LIGHT W/I REACH, BED IN LOW/LOCKED POSITION, SIDERAILS UPX2 , NO SIGNIFICANT CHANGE IN CONDITION DURING THE NIGHT, WILL ENDORSE CONTINUITY OF CARE TO ONCOMING NURSE.
[2018-07-09] MEDS ORDERED: FEE PK DOSING 1 MIN EA MC ONE (07:16)
[2018-07-09] MEDS ORDERED: GENTAMICIN 80 MG in IV NS 0.9% 50 ML IV PRN (07:30)
[2018-07-09 08:00] VITALS: BP 95/57
--- NOTE | 2018-07-09 08:24 | NUR ---
CLINICAL PARTNER NOTES PATIENT RECEIVED RESTING INSIDE ROOM. AWAKE, ALERT AND ORIENTED. VERBALLY RESPONSIVE AND RESPONDS TO VERBAL AND TACTILE STIMULI. BREATHING EVEN AND UNLABORED. NO ACUTE DISTRESS NOTED. DENIES ANY PAIN OR DISCOMFORT. CONTINUE ON TELEMETRY, PATIENT ACCOUNT SPECIALIST IN PLACE, AFIB. ROMY MIDLINE IN PLACE. WILL CONTINUE TO MONITOR. BED LOCKED AND IN LOW POSITION. BILATERAL UPPER SIDE RAILS UP AND LOCKED. CALL LIGHT WITHIN EASY REACH
[2018-07-09] MEDS: BLOOD SUGAR DIAGNOSTIC 1 EACH STRIP IN SCH ×4 (08:49→21:48)
[2018-07-09] MEDS: LOSARTAN POTASSIUM 25 MG TABLET PO SCH ×2 (09:00→17:00)
[2018-07-09] MEDS: CARVEDILOL 12.5 MG TABLET PO SCH ×2 (09:00→17:00)
[2018-07-09] MEDS: PANTOPRAZOLE 40 MG VIAL IV SCH ×2 (09:31→21:46)
[2018-07-09] MEDS: HEPARIN SODIUM, PORCINE 5000 UNITS/1 ML VIAL SQ SCH ×2 (09:31→21:00)
[2018-07-09] MEDS: GABAPENTIN 100 MG CAPSULE PO SCH ×3 (09:39→17:40)
[2018-07-09] MEDS: VIT B CMPLX 3/FA/VIT C/BIOTIN 1 TAB TABLET PO SCH (09:39)
[2018-07-09] MEDS: SENNOSIDES 8.6 MG TABLET PO SCH ×2 (09:39→17:40)
[2018-07-09] MEDS: APIXABAN 5 MG TABLET PO SCH ×2 (09:39→21:47)
[2018-07-09] MEDS: CALCIUM ACETATE 667 MG TABLET PO SCH ×3 (09:39→17:40)
[2018-07-09] MEDS: ASPIRIN 81 MG TAB.CHEW PO SCH (09:39)
[2018-07-09] MEDS: ACIDOPHILUS/BULGARICUS 1 EACH TAB.CHEW PO SCH (09:39)
[2018-07-09 12:00] VITALS: BP 91/58
[2018-07-09 16:00] VITALS: BP 99/61
--- NOTE | 2018-07-09 19:25 | NUR ---
RESEARCH PHYSICIST NOTES PATIENT RESTING INSIDE ROOM. AWAKE, ALERT AND ORIENTED X 3, VERBALLY RESPONSIVE AND RESPONDS TO VERBAL AND TACTILE STIMULI. NO ACUTE DISTRESS. NO CHANGES IN LOC NOTED. PATIENT KEPT CLEAN, DRY AND COMFORTABLE. WILL ENDORSE TO INCOMING SHIFT FOR JOVI. BED LOCKED AND IN LOW POSITION. BILATERAL UPPER SIDE RAILS UP AND LOCKED. CALL LIGHT WITHIN EASY REACH
--- NOTE | 2018-07-09 19:30 | NUR ---
FOUND PT SITTING IN BED AWAKE AND ALERT, BREATHING EVENLY. NO SOB ON SUPPLEMENTAL O2. NO C/O PAIN OR DISCOMFORT .HD CATH ON RCW INTACT . A FIB ON TELE MONITOR. DENIED ANY PAIN OR DISCOMFORT. NEEDS ATTENDED. BED LOW LOCKED. CALL LIGHT WITHIN REACH WILL CONT TO MONITOR .
[2018-07-09 20:00] VITALS: BP 107/51
--- NOTE | 2018-07-09 21:30 | NUR ---
pt on heparin and eliquis as anticoagulant. shruthi freight broker agent on the floor made aware recommending to hold the haparin for tonight and have the hospitalist to f/u in am.
[2018-07-09] MEDS: ATORVASTATIN 10 MG TABLET PO SCH (21:47)
[2018-07-09] MEDS: INSULIN GLARGINE, 100 UNIT/ML CARTRIDGE SQ SCH (21:58)
[2018-07-09] MEDS: INSULIN REGULAR, HUMAN 100 UNIT/ML 3 ML VIAL SQ PRN (22:01)
[2018-07-10] VITALS (7 sets, daily range): BP systolic 92–131; BP diastolic 58–70
[2018-07-10] MEDS: IPRATROPIUM NEB FS 0.5 MG/2.5 ML AMPUL.NEB NEB SCH ×4 (01:30→19:44)
[2018-07-10] MEDS: ALBUTEROL FS 2.5 MG/0.5 ML VIAL.NEB NEB SCH ×4 (01:30→19:45)
[2018-07-10 06:54] LABS: BASOPHILS % (AUTO) 0.5 % (0.0-2.0); EOSINOPHILS % (AUTO) 6.2 % (0.0-6.0); HEMATOCRIT 33 % (39-51); HEMOGLOBIN 10.5 g/dL (13.5-17.5); LYMPHOCYTES # (AUTO) 0.8 /CMM (0.8-4.8); LYMPHOCYTES % (AUTO) 10.7 % (20.0-44.0); MEAN CORPUSCULAR HGB CONC 32 g/dl (31.0-36.0); MEAN CORPUSCULAR VOLUME 94 fL (80-96); MONOCYTES # (AUTO) 0.5 /CMM (0.1-1.30); MONOCYTES % (AUTO) 6.9 % (2.0-12.0); NEUTROPHILS # (AUTO) 5.7 /CMM (1.8-8.9); NEUTROPHILS % (AUTO) 75.7 % (43.0-81.0); PLATELET COUNT (AUTO) 126 /CMM (150-450); RED BLOOD CELL COUNT(AUTO) 3.52 MIL/uL (4.5-6.0); WHITE BLOOD COUNT (AUTO) 7.6 K/uL (4.3-11.0)
[2018-07-10 06:55] LABS: CALCIUM, SERUM 8.3 mg/dL (8.5-10.1); POTASSIUM 6.1 mmol/L (3.5-5.1)
--- NOTE | 2018-07-10 06:59 | NUR ---
PT IN BED RESTING COMFORTABLY. BREATHING EVENLY. NO SOB. NO ACUTE EVENT DURING THE NIGHT. NO S/S OR C/O PAIN OR DISCOMFORT . DENIED CP. AFIB CONTROLLED ON TELE MONITOR,. NEEDS ATTENDED. BED LOW LOCKED. CALL LIGHT WITHIN REACH. WILL CONT TO MONITOR AND WILL ENDORSE TO AM SHIFT FOR JOVI,
[2018-07-10 07:02] LABS: CREATININE 11.3 mg/dL (0.6-1.3)
[2018-07-10] MEDS: BLOOD SUGAR DIAGNOSTIC 1 EACH STRIP IN SCH ×4 (07:30→21:33)
[2018-07-10] MEDS ORDERED: VANCOMYCIN 500 MG in IV D5W 100 ML IV PRN (08:30)
[2018-07-10] MEDS: PANTOPRAZOLE 40 MG VIAL IV SCH ×2 (09:02→21:24)
[2018-07-10] MEDS: CALCIUM ACETATE 667 MG TABLET PO SCH ×3 (09:03→17:27)
[2018-07-10] MEDS: ACIDOPHILUS/BULGARICUS 1 EACH TAB.CHEW PO SCH (09:03)
[2018-07-10] MEDS: ASPIRIN 81 MG TAB.CHEW PO SCH (09:03)
[2018-07-10] MEDS: HEPARIN SODIUM, PORCINE 5000 UNITS/1 ML VIAL SQ SCH ×2 (09:03→21:00)
[2018-07-10] MEDS: GABAPENTIN 100 MG CAPSULE PO SCH ×3 (09:03→17:26)
[2018-07-10] MEDS: CARVEDILOL 12.5 MG TABLET PO SCH ×2 (09:04→17:27)
[2018-07-10] MEDS: LOSARTAN POTASSIUM 25 MG TABLET PO SCH ×2 (09:05→17:27)
[2018-07-10] MEDS: VIT B CMPLX 3/FA/VIT C/BIOTIN 1 TAB TABLET PO SCH (09:06)
[2018-07-10] MEDS: APIXABAN 5 MG TABLET PO SCH ×2 (09:06→21:34)
[2018-07-10] MEDS: SENNOSIDES 8.6 MG TABLET PO SCH ×2 (09:06→17:27)
--- NOTE | 2018-07-10 09:30 | NUR ---
alert, oriented, and appropriate. checked with hd personnel to make sure patient will be dialysed today. for now, all po meds given, no complaint of discomfort nor pain
[2018-07-10] MEDS: LEVOFLOXACIN 250 MG /D5W 50 ML 250 MG in PREMIX 1 EA IV SCH (10:30)
--- NOTE | 2018-07-10 11:37 | NUR ---
Notified pharmacist seconds handler today, GENT level 6.9, NO gent today Vanco 500mg ivpb will be given after HD. Patient made aware
[2018-07-10 13:39] LABS: GENTAMICIN,TROUGH 6.9 ug/ml (0.2-2.0)
[2018-07-10] MEDS ORDERED: ALBUMIN 25% 25 GM in PREMIX 1 EA IV PRN (15:00)
--- NOTE | 2018-07-10 15:17 | NUR ---
all po meds scheduled at 1300, NOT GIVEN, secondary to hd started now. prior to hd, bp went down in the 90's, and during the dialysis,, bp 84/58, with hr 72. ALBUMIN 200cc given during HD. BCx2 drawn now, which was refused earlier.
--- NOTE | 2018-07-10 17:40 | NUR ---
completed his HD, only one liter out. bp improved. did not eat lunch, bs right now 93, encouraged to eat dinner, " did not like their food, demanded roast beef sandwich, on renal diet, author called and left message to kitchen .all po and ivpb given right now.
--- NOTE | 2018-07-10 18:13 | NUR ---
PT REFUSED ABG, RN NOTIFIED.
[2018-07-10] MEDS: ATORVASTATIN 10 MG TABLET PO SCH (21:33)
[2018-07-10] MEDS: INSULIN GLARGINE, 100 UNIT/ML CARTRIDGE SQ SCH (21:42)
[2018-07-10] MEDS: INSULIN REGULAR, HUMAN 100 UNIT/ML 3 ML VIAL SQ PRN (21:43)
[2018-07-11] VITALS: BP 86/49
[2018-07-11] MEDS: ALBUTEROL FS 2.5 MG/0.5 ML VIAL.NEB NEB SCH ×4 (02:28→19:27)
[2018-07-11] MEDS: IPRATROPIUM NEB FS 0.5 MG/2.5 ML AMPUL.NEB NEB SCH ×4 (02:28→19:27)
[2018-07-11 04:00] VITALS: BP 95/48
[2018-07-11] MEDS: BLOOD SUGAR DIAGNOSTIC 1 EACH STRIP IN SCH ×4 (07:30→21:30)
--- NOTE | 2018-07-11 07:55 | NUR ---
as usual , refused blood drawn this am. alert, oriented, and wide awake
[2018-07-11 08:00] VITALS: BP 124/67
[2018-07-11] MEDS: VIT B CMPLX 3/FA/VIT C/BIOTIN 1 TAB TABLET PO SCH (08:36)
[2018-07-11] MEDS: GABAPENTIN 100 MG CAPSULE PO SCH ×3 (08:36→16:44)
[2018-07-11] MEDS: PANTOPRAZOLE 40 MG VIAL IV SCH ×2 (08:36→21:29)
[2018-07-11] MEDS: APIXABAN 5 MG TABLET PO SCH ×2 (08:38→21:30)
[2018-07-11] MEDS: ACIDOPHILUS/BULGARICUS 1 EACH TAB.CHEW PO SCH (08:38)
[2018-07-11] MEDS: LOSARTAN POTASSIUM 25 MG TABLET PO SCH ×2 (08:40→16:46)
[2018-07-11] MEDS: ASPIRIN 81 MG TAB.CHEW PO SCH (08:41)
[2018-07-11] MEDS: CALCIUM ACETATE 667 MG TABLET PO SCH ×3 (08:41→16:46)
[2018-07-11] MEDS: SENNOSIDES 8.6 MG TABLET PO SCH ×2 (08:41→16:44)
[2018-07-11] MEDS: CARVEDILOL 12.5 MG TABLET PO SCH ×2 (08:41→16:46)
[2018-07-11] MEDS: LEVOFLOXACIN 250 MG /D5W 50 ML 250 MG in PREMIX 1 EA IV SCH (08:42)
[2018-07-11] MEDS: HEPARIN SODIUM, PORCINE 5000 UNITS/1 ML VIAL SQ SCH (08:42)
[2018-07-11 11:17] LABS: ABG BASE EXCESS -2.9 mmol/L; ABG OXYGEN SATURATION 95.1 % (92.0-98.5); ABG PCO2 57.2 mmHg (35.0-45.0); ABG PH 7.253 (7.350-7.450); AaDO2 78.5 mmHg; COHb 0.7 % (0.5-1.5); MetHb 0.2 % (0.0-1.5); O2Hb 94.2 % (94.0-97.0); VENT MODE, BG nasal cannula
[2018-07-11 12:00] VITALS: BP 94/66
[2018-07-11 16:00] VITALS: BP 107/59
[2018-07-11] MEDS: LEVOFLOXACIN (250MG) 250 MG TABLET PO SCH (18:24)
[2018-07-11 20:00] VITALS: BP 108/67
[2018-07-11] MEDS: ATORVASTATIN 10 MG TABLET PO SCH (21:30)
[2018-07-11] MEDS: INSULIN GLARGINE, 100 UNIT/ML CARTRIDGE SQ SCH (21:35)
[2018-07-11] MEDS: INSULIN REGULAR, HUMAN 100 UNIT/ML 3 ML VIAL SQ PRN (21:36)
[2018-07-12] VITALS: BP 97/59
--- NOTE | 2018-07-12 00:15 | NUR ---
PT PLACED ON BIPAP AT THIS TIME AT 18/12 PER MD ORDERS WITH RATE OF 14. PT IS COMFORTABLE ON BIPAP. MEPILEX WAS PLACED ON FACE. PER MD ORDERS KEEP SAT AT 88%-90%. BIPAP ALARMS ARE AUDIBLE. WILL CONT TO MONITOR PT. Addendum: 07/12/18 at 0115 by GIGI WHITLEY RT Amended: Links added.
[2018-07-12] MEDS: ALBUTEROL FS 2.5 MG/0.5 ML VIAL.NEB NEB SCH ×4 (00:46→19:54)
[2018-07-12] MEDS: IPRATROPIUM NEB FS 0.5 MG/2.5 ML AMPUL.NEB NEB SCH ×4 (00:46→19:54)
[2018-07-12 04:00] VITALS: BP 123/84
[2018-07-12 08:00] VITALS: BP 122/68
[2018-07-12] MEDS: ACIDOPHILUS/BULGARICUS 1 EACH TAB.CHEW PO SCH (08:27)
[2018-07-12] MEDS: VIT B CMPLX 3/FA/VIT C/BIOTIN 1 TAB TABLET PO SCH (08:27)
[2018-07-12] MEDS: GABAPENTIN 100 MG CAPSULE PO SCH ×3 (08:27→18:13)
[2018-07-12] MEDS: SENNOSIDES 8.6 MG TABLET PO SCH ×2 (08:27→18:13)
[2018-07-12] MEDS: CALCIUM ACETATE 667 MG TABLET PO SCH ×3 (08:28→18:13)
[2018-07-12] MEDS: ASPIRIN 81 MG TAB.CHEW PO SCH (08:28)
[2018-07-12] MEDS: LOSARTAN POTASSIUM 25 MG TABLET PO SCH ×2 (08:29→18:13)
[2018-07-12] MEDS: HYDROCODONE/APAP 5/325MG 1 EACH TABLET PO PRN ×2 (08:30→19:00)
[2018-07-12] MEDS: CARVEDILOL 12.5 MG TABLET PO SCH ×2 (08:30→18:13)
[2018-07-12] MEDS: PANTOPRAZOLE 40 MG VIAL IV SCH ×2 (08:32→21:38)
[2018-07-12] MEDS: BLOOD SUGAR DIAGNOSTIC 1 EACH STRIP IN SCH ×4 (08:32→21:40)
[2018-07-12] MEDS: APIXABAN 5 MG TABLET PO SCH ×2 (08:39→21:40)
[2018-07-12] MEDS ORDERED: Levofloxacin (250MG) PO (11:41)
[2018-07-12 12:00] VITALS: BP 99/71
--- NOTE | 2018-07-12 14:09 | NUR ---
ALLEGRA GARCIA NOTE\\ Addendum: 07/12/18 at 1411 by MARK ANTHONY REYES RN PT REFUSED ABG BLOOD DRAW EARLIER TODAY BUT AFTER CONVINCING, PATIENT AGREED TO HAVE IT DONE.
[2018-07-12 14:12] LABS: ABG BASE EXCESS -2.3 mmol/L; ABG OXYGEN SATURATION 95.6 % (92.0-98.5); ABG PH 7.243 (7.350-7.450); ABG PO2 97.6 mmHg (75.0-100.0); AaDO2 0.9 mmHg; COHb 0.8 % (0.5-1.5); MetHb 0.4 % (0.0-1.5); O2Hb 94.5 % (94.0-97.0); SITE, ABG Right Radial; VENT MODE, BG 1L NC
--- NOTE | 2018-07-12 14:46 | NUR ---
ROLL SLICING MACHINE TENDER NOTE NOTIFIED DR. REMY OF PATIENT'S ABG RESULTS, RECEIVED AN ORDER TO HOLD DISCHARGE AND REPEAT ABGS IN THE MORNING.
[2018-07-12 16:00] VITALS: BP 121/63
[2018-07-12] MEDS: LEVOFLOXACIN (250MG) 250 MG TABLET PO SCH (19:00)
--- NOTE | 2018-07-12 19:20 | NUR ---
BLANKING MACHINE OPERATOR NOTE PATIENT RESTING IN BED IN STABLE CONDITION, NO RESPIRATORY DISTRESS NOTED, HAD DIALYSIS EARLIER TODAY, 2L OUT. PATIENT ABLE TO MAKE NEEDS KNOWN. MIDLINE INTACT SALINE LOCK. CALL LIGHT WITHIN REACH, BED IN LOW LOCKED POSITION. INFORMED LAUNDRY SORTER NURSE TO ENCOURAGE PATIENT TO KEEP BIPAP ON ALL NIGHT AND THEN ENDORSE TO MORNING SHIFT TO NOTIFY DR. REMY OF NEW ABG RESULTS TOMORROW AND TO KEEP O2 FLOW AT 0.5LPM.
[2018-07-12 19:58] LABS: CALCIUM, SERUM 8.2 mg/dL (8.5-10.1); POTASSIUM 5.1 mmol/L (3.5-5.1)
[2018-07-12 20:00] VITALS: BP 122/72
[2018-07-12] MEDS: ATORVASTATIN 10 MG TABLET PO SCH (21:39)
[2018-07-12] MEDS: INSULIN GLARGINE, 100 UNIT/ML CARTRIDGE SQ SCH (21:45)
[2018-07-12] MEDS: INSULIN REGULAR, HUMAN 100 UNIT/ML 3 ML VIAL SQ PRN (21:46)
--- NOTE | 2018-07-12 22:21 | NUR ---
RT PT RECEIVED ON ROOM AIR THEN PLACED ON BIPAP WITH SETTINGS ORDERED BY . BIPAP ALARMS ON AND AUDIBLE, VENT PLUGGED IN RED OUTLET, TX GIVEN WITH NO ADVERSE REACTION. MASK SECURED AND IN PLACE, PATIENT TOLERATING WELL, WILL CONTINUE TO MONITOR. Addendum: 07/12/18 at 2224 by ELBERT BUSTILLO RT Amended: Links added.
--- NOTE | 2018-07-12 23:46 | NUR ---
RT PATIENT BIPAP MASK CHANGED TO UNDER THE NOSE MASK. PT TOLERATING CHANGE WELL. NO SOB NOTED AT THIS TIME. Addendum: 07/12/18 at 2347 by ELBERT BUSTILLO RT Amended: Links added.
[2018-07-13 00:20] VITALS: BP 102/63
[2018-07-13] MEDS: ALBUTEROL FS 2.5 MG/0.5 ML VIAL.NEB NEB SCH ×3 (01:37→14:13)
[2018-07-13] MEDS: IPRATROPIUM NEB FS 0.5 MG/2.5 ML AMPUL.NEB NEB SCH ×3 (01:37→14:13)
[2018-07-13 04:00] VITALS: BP 122/64
--- NOTE | 2018-07-13 07:30 | NUR ---
RN OPENING NOTES RECEIVED PT IN BED, ON SITTING POSITION, AWAKE, A/OX4. ABLE TO MAKE NEEDS KNOWN. PT IS ON OXYGEN SUPPORT VIA [employer] CANNULA AT 0.5 LPM, NO S/SX OF DISTRESS, NO SOB NOTED AT THIS TIME. PATIENT NO COMPLAINS OF PAIN. IV LINE ON THE R UPPER ARM MIDLINE: IN PLACE AND INTACT: SL. PATENT ON FLUSHING. ENCOURAGE TO CALL FOR HELP OR ASSISTANCE. SAFETY MEASURES OBSERVED AND MAINTAINED. SRX2, BED IN LOCKED/LOWEST POSITION. CALL LIGHT IN REACH. WILL CONT TO MONITOR
[2018-07-13 08:00] VITALS: BP 120/72
[2018-07-13] MEDS: PANTOPRAZOLE 40 MG VIAL IV SCH (08:44)
[2018-07-13] MEDS: BLOOD SUGAR DIAGNOSTIC 1 EACH STRIP IN SCH ×3 (08:44→17:37)
[2018-07-13] MEDS: CALCIUM ACETATE 667 MG TABLET PO SCH ×3 (08:44→17:34)
[2018-07-13] MEDS: VIT B CMPLX 3/FA/VIT C/BIOTIN 1 TAB TABLET PO SCH (08:45)
[2018-07-13] MEDS: SENNOSIDES 8.6 MG TABLET PO SCH ×2 (08:45→17:34)
[2018-07-13] MEDS: ACIDOPHILUS/BULGARICUS 1 EACH TAB.CHEW PO SCH (08:45)
[2018-07-13] MEDS: GABAPENTIN 100 MG CAPSULE PO SCH ×3 (08:45→17:34)
[2018-07-13] MEDS: ASPIRIN 81 MG TAB.CHEW PO SCH (08:45)
[2018-07-13 08:47] LABS: CALCIUM, SERUM 8.4 mg/dL (8.5-10.1)
[2018-07-13 08:51] LABS: CREATININE 11.3 mg/dL (0.6-1.3)
[2018-07-13] MEDS: APIXABAN 5 MG TABLET PO SCH (08:51)
[2018-07-13] MEDS: LOSARTAN POTASSIUM 25 MG TABLET PO SCH ×2 (09:00→17:00)
[2018-07-13] MEDS: CARVEDILOL 12.5 MG TABLET PO SCH ×2 (09:00→17:00)
--- NOTE | 2018-07-13 09:00 | NUR ---
RN NOTES BLOOD PRESSURE MEDICINE NOT GIVEN DUE TO PATIENT SCHEDULE FOR DIALYSIS AT THIS TIME
[2018-07-13] MEDS: HYDROCODONE/APAP 5/325MG 1 EACH TABLET PO PRN (09:56)
[2018-07-13 10:33] LABS: ABG BASE EXCESS -1.7 mmol/L; ABG OXYGEN SATURATION 87.6 % (92.0-98.5); ABG PCO2 46.8 mmHg (35.0-45.0); ABG PH 7.334 (7.350-7.450); ABG PO2 59.2 mmHg (75.0-100.0); AaDO2 34.5 mmHg; COHb 0.9 % (0.5-1.5); MetHb 0.5 % (0.0-1.5); O2Hb 86.4 % (94.0-97.0); SITE, ABG Left Radial; VENT MODE, BG R/A
[2018-07-13 12:00] VITALS: BP 116/89
[2018-07-13] MEDS: INSULIN REGULAR, HUMAN 100 UNIT/ML 3 ML VIAL SQ PRN (14:54)
[2018-07-13 16:00] VITALS: BP 111/71
--- NOTE | 2018-07-13 16:10 | NUR ---
RN NOTES PATIENT STARTED ON DIALYSIS
--- NOTE | 2018-07-13 17:00 | NUR ---
RN NOTES BLOOD PRESSURE MEDICINE NOT GIVEN DUE TO PATIENT ON DILAYSIS
[2018-07-13] MEDS: LEVOFLOXACIN (250MG) 250 MG TABLET PO SCH (17:34)
--- NOTE | 2018-07-13 18:10 | NUR ---
RN NOTES SPOKE TO JOSE GUZMÁN. REPORT GIVEN FOR CONTINUITY OF CARE
--- NOTE | 2018-07-13 18:40 | NUR ---
RN NOTES PATIENT DISCHARGE. EXIT CARE DONE. VACCINATION HISTORY OBTAINED BY [facility]. BELONGINGS ACCOUNTED BUT PER PATIENT HAS BEEN BROUGHT HOME BY THE SISTER. ALL DISCHARGE AND MEDICATION INSTRUCTION GIVEN TO THE PATIENT. NO PHOTO TAKEN DUE TO SKIN IS INTACT. IV LINE REMOVED. ID BAND REMOVED. PATIENT BROUGHT OUT OF THE UNIT VIA GURNEY ACCOMPANIED BY SISTER AND 2 EMT
== END 2018-07-13 18:40 | DRG 871 ==
LOC: ER 13:06 → TELE1 15:16 → ICU 07-06 03:30 → TELE1 07-08 11:46
PROVIDERS: ADMIT Nurse Practitioner Acute Care; ATTEND Nurse Practitioner Acute Care
PROC: 5A09457 Assistance with Respiratory Ventilation, 24-96 Consecutive Hours, Continuous Positive Airway Pressure (ICD-10-PCS; 2018-07-05)
PROC: 5A1945Z Respiratory Ventilation, 24-96 Consecutive Hours (ICD-10-PCS; principal; 2018-07-06)
PROC: 0BH17EZ Insertion of Endotracheal Airway into Trachea, Via Natural or Artificial Opening (ICD-10-PCS; 2018-07-06)
PROC: 5A1D70Z Performance of Urinary Filtration, Intermittent, Less than 6 Hours Per Day (ICD-10-PCS; 2018-07-06)
PROC: 05H533Z Insertion of Infusion Device into Right Subclavian Vein, Percutaneous Approach (ICD-10-PCS; 2018-07-06)
PROC: B546ZZA Ultrasonography of Right Subclavian Vein, Guidance (ICD-10-PCS; 2018-07-06)
PROC: 5A1D70Z Performance of Urinary Filtration, Intermittent, Less than 6 Hours Per Day (ICD-10-PCS; 2018-07-07)
PROC: 5A1D70Z Performance of Urinary Filtration, Intermittent, Less than 6 Hours Per Day (ICD-10-PCS; 2018-07-08)
PROC: 5A1D70Z Performance of Urinary Filtration, Intermittent, Less than 6 Hours Per Day (ICD-10-PCS; 2018-07-09)
PROC: 5A1D70Z Performance of Urinary Filtration, Intermittent, Less than 6 Hours Per Day (ICD-10-PCS; 2018-07-10)
PROC: 5A1D70Z Performance of Urinary Filtration, Intermittent, Less than 6 Hours Per Day (ICD-10-PCS; 2018-07-13)
DX: A41.9 Sepsis, unspecified organism (principal); I50.23 Acute on chronic systolic (congestive) heart failure; N18.6 End stage renal disease; J69.0 Pneumonitis due to inhalation of food and vomit; J96.21 Acute and chronic respiratory failure with hypoxia; J96.22 Acute and chronic respiratory failure with hypercapnia; E66.2 Morbid (severe) obesity with alveolar hypoventilation; N39.0 Urinary tract infection, site not specified; I13.2 Hypertensive heart and chronic kidney disease with heart failure and with stage 5 chronic kidney disease, or end stage renal disease; J98.11 Atelectasis; E87.2 Acidosis; Z68.41 Body mass index [BMI] 40.0-44.9, adult; Z99.2 Dependence on renal dialysis; I25.10 Atherosclerotic heart disease of native coronary artery without angina pectoris; Z95.1 Presence of aortocoronary bypass graft; I48.91 Unspecified atrial fibrillation; E11.22 Type 2 diabetes mellitus with diabetic chronic kidney disease; Z79.4 Long term (current) use of insulin; Z79.82 Long term (current) use of aspirin; Z79.899 Other long term (current) drug therapy; Z98.61 Coronary angioplasty status; D63.8 Anemia in other chronic diseases classified elsewhere; J44.9 Chronic obstructive pulmonary disease, unspecified; M19.90 Unspecified osteoarthritis, unspecified site; I25.5 Ischemic cardiomyopathy; K21.9 Gastro-esophageal reflux disease without esophagitis; E87.5 Hyperkalemia; D69.6 Thrombocytopenia, unspecified; Z86.74 Personal history of sudden cardiac arrest; Z72.0 Tobacco use; M85.9 Disorder of bone density and structure, unspecified
CPT/HCPCS: 31720; 36415; 36600; 71045-TC; 80048-TC; 80061-TC; 80076-TC; 80170-TC; 80202-TC; 81000-TC; 82803-TC; 82962-TC; 83605-TC; 83735-TC; 84100-TC; 84443-TC; 84484-TC; 85025-TC; 85730-TC; 87040-TC; 87070-TC; 87081-TC; 87086-TC; 87186-TC; 90935-TC; 93307-TC; 94002-TC; 94003-TC; 94640-TC; 94760-TC; 94799-TC; 97110-TC; 97116-TC; 97530-TC; A4216; A6402; C9113; G0378; J0330; J1580; J1644; J1815; J1956; J2270; J2543; J3370; J3490; J7030; J7050; J7060; P9047; Q0169

== ENCOUNTER 2018-10-04 09:03 | Inpatient (IN) | payer MEDICARE, MEDICAID ==
[2018-10-04] VITALS (33 sets, daily range): BP systolic 97–160; BP diastolic 52–106
[~2018-10-04] VITALS: Ht 180.3 cm; Wt 136.5 kg
[~2018-10-04 09:03] MED LIST: ACID1TAB12 PO; ASPI-1169 PO; ATOR10TA PO; CALC667C6 PO; CARV12.52 PO; CLON0.1T PO; FOLI0.8T23 PO; GABA-532 PO; INSU100I4 SQ; INSU100V10 SQ; IPRA3AMP23 NEB; LOSA25TA27 PO; Levofloxacin (250MG) PO; PANT40TA2 PO; POLY17PO4 PO; PROM6.256 PO; SENN-168 PO
--- NOTE | 2018-10-04 09:12 | NUR ---
PT SENT [facility]IAL[facility]. C/O DIZZINESS,L SIDED CHEST DISCOMFORT. PT IS AAOX4, NOT IN RESPIRATORY DISTRESS, V/S STABLE, KEPT RESTED AND COMFORTABLE, WILL CONTINUE TO MONITOR.
--- NOTE | 2018-10-04 09:20 | NUR ---
SEEN AND EXAMINED BY DR. AMADOR.
--- NOTE | 2018-10-04 09:35 | NUR ---
IV LINE ESTABLISHED, LABS DRAWNED AND SENT TO LAB.
[2018-10-04 09:38] LABS: BASOPHILS % (AUTO) 0.4 % (0.0-2.0); EOSINOPHILS % (AUTO) 9.1 % (0.0-6.0); HEMATOCRIT 37 % (39-51); HEMOGLOBIN 11.7 g/dL (13.5-17.5); LYMPHOCYTES % (AUTO) 16.5 % (20.0-44.0); MEAN CORPUSCULAR HGB CONC 32 g/dl (31.0-36.0); MEAN CORPUSCULAR VOLUME 95 fL (80-96); MONOCYTES # (AUTO) 0.3 /CMM (0.1-1.30); MONOCYTES % (AUTO) 4.2 % (2.0-12.0); NEUTROPHILS # (AUTO) 4.4 /CMM (1.8-8.9); NEUTROPHILS % (AUTO) 69.8 % (43.0-81.0); PLATELET COUNT (AUTO) 110 /CMM (150-450); RED BLOOD CELL COUNT(AUTO) 3.91 MIL/uL (4.5-6.0); WHITE BLOOD COUNT (AUTO) 6.3 K/uL (4.3-11.0)
[2018-10-04 09:48] LABS: CALCIUM, SERUM 8.8 mg/dL (8.5-10.1); POTASSIUM 5.3 mmol/L (3.5-5.1)
--- NOTE | 2018-10-04 09:49 | NUR ---
COPY PREPARER AT BEDSIDE FOR XRAY.
[2018-10-04 10:02] LABS: BILIRUBIN,DIRECT 0.1 mg/dL (0.0-0.2); BILIRUBIN,TOTAL 0.3 mg/dL (0.2-1.0)
[2018-10-04 10:03] LABS: ALBUMIN 3.6 g/dL (3.4-5.0); TOTAL PROTEIN, SERUM 7.3 g/dL (6.4-8.2)
--- NOTE | 2018-10-04 11:05 | NUR ---
REPORT GIVEN TO DARYN GARCIA. PT AWAIT ING TRANSFER TO FLOOR.
[2018-10-04] MEDS ORDERED: HYDROCODONE/APAP 5/325MG 1 EACH TABLET PO PRN (11:30)
[2018-10-04] MEDS ORDERED: MAGNESIUM HYDROXIDE 30 ML UDC PO PRN (11:30)
[2018-10-04] MEDS ORDERED: ACETAMINOPHEN 325 MG TABLET PO PRN (11:30)
[2018-10-04] MEDS ORDERED: ONDANSETRON HCL/PF 4 MG/2 ML VIAL IVP PRN (11:30)
[2018-10-04] MEDS ORDERED: MAG HYDROX/AL HYDROX/SIMETH 30 ML UDC PO PRN (11:30)
[2018-10-04] MEDS: PANTOPRAZOLE 40 MG TABLET.DR PO SCH (11:30)
[2018-10-04] MEDS ORDERED: ZOLPIDEM TARTRATE 5 MG TABLET PO PRN (11:30)
[2018-10-04] MEDS ORDERED: Z GUARD REMEDY 2 OZ OINT TP PRN (11:30)
[2018-10-04] MEDS ORDERED: CHOL100044 PO (11:33)
[2018-10-04] MEDS ORDERED: BLOO-668 IN (11:33)
[2018-10-04] MEDS ORDERED: ACET-2605 PO (11:33)
--- NOTE | 2018-10-04 11:45 | NUR ---
MS AUTOMOTIVE FINANCE MANAGER NOTE RECEIVED PT FROM ER VIA GURNEY WITH CHIEF C/O OF DIZZINESS AND LEFT CHEST SIDED HEAVINESS. PT IS A/OX4, DENIES CHEST PAIN, N/V. STATES HE HAS SOB WITH EXERTION. PT PLACED ON TELE MONITOR AND IS A-FIB WITH HR 82 AT THIS TIME. VS OBTAINED PER PROTOCOL. LEFT AC #20G IV IS PATENT, CLEAN, DRY AND INTACT. SISTER IS AT THE BEDSIDE. PENDING ADMISSION ORDERS AND STAT ABG ORDERED BY DR.TIM CENTENO. ON THE UNIT AT APPROXIMALLY 1100 AND AWARE THAT PT WILL BE ON THE UNIT POSSIBLY NEEDED DIALYSIS. AT 1113 CALLED [facility] REQUESTING RECORDS AND PROVIDED FAX NUMBER FOR [facility]. PER METAL TRADES INSTRUCTOR AT [facility] THEY WILL FAX SHORTLY. UNIT ORIENTATION PROVIDED INCLUDING USE OF CALL SYSTEM. ALL NEEDS ATTENDED TO. BED IS LOCKED AND IN LOWEST POSITION, SIDE RAILS UP X2, CALL LIGHT AND POSSESSIONS WITHIN REACH.
--- NOTE | 2018-10-04 12:05 | NUR ---
MS RN NOTE INFORMED BY CHARGE NURSE NEREYDA OF ORDER TO TRANSFER PT TO ICU BY DR.TIM CENTENO FOLLOWING ABG RESULT. AWAITING BED FROM NURSING SUP.
[2018-10-04 12:14] LABS: ABG BASE EXCESS -4.1 mmol/L; ABG OXYGEN SATURATION 57.4 % (92.0-98.5); ABG PCO2 85.1 mmHg (35.0-45.0); ABG PH 7.119 (7.350-7.450); ABG PO2 35.8 mmHg (75.0-100.0); AaDO2 92.8 mmHg; COHb 1.7 % (0.5-1.5); MetHb 0.6 % (0.0-1.5); O2Hb 56.1 % (94.0-97.0); SITE, ABG Right Radial; VENT MODE, BG nasal cannula
--- NOTE | 2018-10-04 12:20 | NUR ---
MEDICAL CODING MANAGER NOTE RECEIVED FAX FROM [facility], PLACED IN CHART.
[2018-10-04] MEDS ORDERED: CLONIDINE HCL 0.1 MG TABLET PO PRN (12:30)
[2018-10-04] MEDS: ASPIRIN 81 MG TAB.CHEW PO SCH ×2 (12:30→17:28)
--- NOTE | 2018-10-04 12:30 | NUR ---
PATIENT TRANSFERRED FROM TELEMETRY FOR ACUTE BIPAP MANAGEMENT. PH 7.1 , PCO2 85. PATIENT APPEARS DROWSY BUT EASILY AROUSABLE TO VERBAL STIMULI. FOLLOWS SIMPLE COMMANDS. MONITOR SHOWS AFIB 80'S. SBP>160. PLACED ON BIPAP BY RT .
--- NOTE | 2018-10-04 12:42 | NUR ---
RETAIL ASSISTANT STORE MANAGER NOTE PT TRANSFERRED TO ICU BED 261 VIA ACLS PROTOCOL. REPORT GIVEN TO JOSE ALTAMIRANO FOR CONTINUITY OF CARE. SISTER AT THE BEDSIDE.
--- NOTE | 2018-10-04 12:45 | NUR ---
HD RN AT BEDSIDE.
--- NOTE | 2018-10-04 12:46 | NUR ---
PT REC'D ON 3LNC, PT PLACED ON BIPAP PER ABG RESULTS AND MD ORDERS. PT PLACED ON NOTED SETTINGS. ABG TO BE TAKEN WITHIN 1 HR. ALARMS ARE SET AND AUDIBLE. BIPAP PLUGGED INTO RED OUTLET. NELLU BAG BEDSIDE. WILL CONTINUE TO MONITOR Addendum: 10/04/18 at 1251 by NANCY LONG RT Amended: Links added.
[2018-10-04] MEDS: CALCIUM ACETATE 667 MG TABLET PO SCH ×2 (13:00→17:29)
[2018-10-04] MEDS: GABAPENTIN 100 MG CAPSULE PO SCH ×2 (13:00→17:28)
--- NOTE | 2018-10-04 13:00 | NUR ---
RN NOTES RECEIVED PT IN ROOM 261, PT IS DRAWZY , AROUSABLE TO VERBAL STIMULI , FOLLOWS SIMPLE COMMAND, ON BIPAP , O2 SAT 94%, TOLERATING CURRENT BIPAP SETTING WELL, Seamus PALACIOS ON TELE, RECEIVING HD AT THIS TIME, BP 177/100, DR CENTENO NOTIFED, NEW ORDER RECEIVED , L UPPER ARM IV SITE G 20 , CLEAN , DRY AND INTACT , PT IS NPO EXCEPT MEDS PER MD. UNABLE TO TAKE PO MEDS AT THIS TIME, DR CENTENO NOTIFED, SR UP x3, CALL LIGHT WITHIN EASY REACH, BED LOCKED AND IN LOWEST POSITION ,CONTINUE TO MONITOR .
--- NOTE | 2018-10-04 13:30 | NUR ---
RR CHANGED TO [address] CENTENO. ABG TO BE TAKEN POST DIALYSIS PER DR REMY REQUEST Addendum: 10/04/18 at 1406 by NANCY LONG RT Amended: Links added.
[2018-10-04] MEDS ORDERED: DEXTROSE 50%-WATER 50 ML DISP.SYRIN IV PRN (14:00)
[2018-10-04] MEDS ORDERED: hydrALAZINE HCL IV 20 MG VIAL IV PRN (14:00)
[2018-10-04] MEDS ORDERED: BLOOD SUGAR DIAGNOSTIC 1 EACH STRIP IN SCH (14:00)
[2018-10-04] MEDS: BLOOD SUGAR DIAGNOSTIC 1 EACH STRIP IN SCH ×3 (14:30→22:12)
[2018-10-04 15:50] LABS: ABG BASE EXCESS -0.4 mmol/L; ABG OXYGEN SATURATION 96.3 % (92.0-98.5); ABG PCO2 54.9 mmHg (35.0-45.0); ABG PH 7.305 (7.350-7.450); ABG PO2 89.9 mmHg (75.0-100.0); AaDO2 59.5 mmHg; COHb 1.5 % (0.5-1.5); MetHb 0.9 % (0.0-1.5); SITE, ABG Left Radial; VENT MODE, BG Bipap 15/5 30% RR20
[2018-10-04] MEDS: IPRATROPIUM NEB FS 0.5 MG/2.5 ML AMPUL.NEB NEB SCH ×3 (15:59→23:31)
[2018-10-04] MEDS: ALBUTEROL HALF STRENGTH 1.25 MG/3 ML VIAL.NEB NEB SCH ×3 (15:59→23:31)
--- NOTE | 2018-10-04 16:01 | NUR ---
abg results given to dr leyva. bipap changes per dr leyva request Addendum: 10/04/18 at 1602 by NANCY LONG RT Amended: Links added.
[2018-10-04] MEDS: CARVEDILOL 12.5 MG TABLET PO SCH (17:28)
[2018-10-04] MEDS: LOSARTAN POTASSIUM 25 MG TABLET PO SCH (17:28)
--- NOTE | 2018-10-04 18:30 | NUR ---
RN NOTES DR CENTENO NOTIFED REGARDING ABG RESULTS AND TROPONIN .080, NO NEW ORDER RECEIVED .
--- NOTE | 2018-10-04 18:53 | NUR ---
INITIAL ECHO SHOWED EF 20-25%~. ADVISED ADARSH (MILK DRIVER) AND DR. MCINTOSH OF PRE FINDINGS.
--- NOTE | 2018-10-04 18:58 | NUR ---
RN NOTES PT STILL ON BIPAP , MORE AWAKE, VSS STABLE, WILL ENDORSE TO TALENT BUYER NURSE FOR CONTINUITY OF CARE
--- NOTE | 2018-10-04 20:00 | NUR ---
ICU/RN-RECEIVED PT. FROM DAYSHIFT RN SONIDO, PT. SLEEPING, AROUSABLE, APPROPRIATE, FOLLOWS SIMPLE COMMANDS AND FALLS BACK TO SLEEP. BREATHING COMES EASY W/ BIPAP ON, SATS.-95%. EKG ATRIAL FIBRILLATION W/ HR-71, BP-118/76. AFEBRILE. DENIES PAIN OR DISCOMFORT. PT. IS A FULL CODE.
--- NOTE | 2018-10-04 20:20 | NUR ---
PT RCVD ON BIPAP 20/5 ,RATE 16, 30%. BIPAP PLUGGED INTO RED OUTLET, ALARMS SET AND AUDIBLE. BREATHING TX GIVEN PER MD'S ORDER, NO ADVERSE REACTION NOTED. WILL CONTINUE TO MONITOR THE PT.
--- NOTE | 2018-10-04 20:25 | NUR ---
ICU/RN-PT. SISTER CALLED BY PHONE, CHECKING ON PT. STATUS, UPDATE GIVEN TO SAME, VERBALIZED UNDERSTANDING.
[2018-10-04] MEDS ORDERED: INSULIN DETEMIR 100 UNIT/ML CARTRIDGE SQ SCH (22:00)
[2018-10-04] MEDS: ATORVASTATIN 10 MG TABLET PO SCH (22:08)
[2018-10-05] VITALS (23 sets, daily range): BP systolic 95–135; BP diastolic 54–81
--- NOTE | 2018-10-05 03:15 | NUR ---
ICU/RN- PT. NOW FULLY AWAKE, REQUESTING BIPAP TO BE OFF. OFF BY RT KWAME. 2L/NC ADMINISTERED, SATS.-97%. WILL MONITOR CLOSELY.
[2018-10-05] MEDS: ALBUTEROL HALF STRENGTH 1.25 MG/3 ML VIAL.NEB NEB SCH ×6 (03:36→23:07)
[2018-10-05] MEDS: IPRATROPIUM NEB FS 0.5 MG/2.5 ML AMPUL.NEB NEB SCH ×6 (03:37→23:07)
[2018-10-05 04:57] LABS: BASOPHILS # (AUTO) 0.1 /CMM (0.0-0.2); BASOPHILS % (AUTO) 1.4 % (0.0-2.0); EOSINOPHILS % (AUTO) 6.9 % (0.0-6.0); HEMATOCRIT 34 % (39-51); HEMOGLOBIN 10.8 g/dL (13.5-17.5); LYMPHOCYTES # (AUTO) 1.4 /CMM (0.8-4.8); LYMPHOCYTES % (AUTO) 19.6 % (20.0-44.0); MEAN CORPUSCULAR HGB CONC 32 g/dl (31.0-36.0); MEAN CORPUSCULAR VOLUME 95 fL (80-96); MONOCYTES # (AUTO) 0.5 /CMM (0.1-1.30); MONOCYTES % (AUTO) 6.6 % (2.0-12.0); NEUTROPHILS # (AUTO) 4.8 /CMM (1.8-8.9); NEUTROPHILS % (AUTO) 65.5 % (43.0-81.0); PLATELET COUNT (AUTO) 101 /CMM (150-450); RED BLOOD CELL COUNT(AUTO) 3.61 MIL/uL (4.5-6.0); WHITE BLOOD COUNT (AUTO) 7.3 K/uL (4.3-11.0)
--- NOTE | 2018-10-05 05:00 | NUR ---
ICU/RN- PT. REMAINS FULLY AWAKE, DENIES SOB OR DISCOMFORT, NOW ASKING TO BE PUT BACK TO BIPAP, PT. WANTS TO SLEEP WHILE ON BIPAP. RT KWAME NOTIFIED.
[2018-10-05 05:10] LABS: CALCIUM, SERUM 8.7 mg/dL (8.5-10.1); CREATININE 7.4 mg/dL (0.6-1.3); MAGNESIUM 1.9 mg/dL (1.8-2.4); PHOSPHORUS 4.4 mg/dL (2.5-4.9); POTASSIUM 5.1 mmol/L (3.5-5.1)
[2018-10-05] MEDS: PANTOPRAZOLE 40 MG TABLET.DR PO SCH (07:30)
[2018-10-05] MEDS: CALCIUM ACETATE 667 MG TABLET PO SCH ×3 (08:00→17:15)
--- NOTE | 2018-10-05 08:00 | NUR ---
ICU/RN AM SHIFT INITIAL NOTES RECEIVED PT ASLEEP IN BED, PT A/O X 4, NO ACUTE CHANGE OF CONDITION, ON BI-PAP, LUNG SOUNDS DIMINISHED, SATURATING @ 94%, ON TELE WITH CONTROLLED A-FIB, HR 79, IV ACCESS PATENT WITH NO S/S OF INFECTION, HD ACCESS INTACT AND CLEAN. PT ON NPO EXCEPT MEDS. BS CHECKED, 98. PT IS COMFORTABLE, SCHEDULED AM MEDS TO BE GIVEN. CL WITHIN REACHED AND SAFETY MAINTAINED. ON GOING MONITORING.
--- NOTE | 2018-10-05 08:14 | NUR ---
WOUND CARE CONSULT: PT SLEEPING SOUNDLY AT THIS TIME. ON BIPAP. WILL SEE PT AT LATER TIME FOR SKIN ASSESSMENT.
[2018-10-05] MEDS: BLOOD SUGAR DIAGNOSTIC 1 EACH STRIP IN SCH ×4 (08:34→22:36)
[2018-10-05] MEDS: VIT B CMPLX 3/FA/VIT C/BIOTIN 1 TAB TABLET PO SCH (08:36)
[2018-10-05] MEDS: ASPIRIN 81 MG TAB.CHEW PO SCH (08:36)
[2018-10-05] MEDS: GABAPENTIN 100 MG CAPSULE PO SCH ×3 (08:36→17:15)
[2018-10-05] MEDS: LOSARTAN POTASSIUM 25 MG TABLET PO SCH ×2 (08:36→17:16)
[2018-10-05] MEDS: CHOLECALCIFEROL 1,000 UNIT TABLET (VIT D3) PO SCH (08:36)
[2018-10-05] MEDS: CARVEDILOL 12.5 MG TABLET PO SCH ×2 (08:36→17:16)
--- NOTE | 2018-10-05 09:40 | NUR ---
ICU/POWERHOUSE ELECTRICIAN PT BEGAN DIALYSIS TREATMENT, BP 130/70, HR 75. ON GOING MONITORING.
[2018-10-05 09:50] LABS: ABG BASE EXCESS 1.6 mmol/L; ABG OXYGEN SATURATION 91.9 % (92.0-98.5); ABG PCO2 43.6 mmHg (35.0-45.0); ABG PH 7.403 (7.350-7.450); ABG PO2 61.8 mmHg (75.0-100.0); COHb 1.7 % (0.5-1.5); MetHb 0.3 % (0.0-1.5); O2Hb 90.1 % (94.0-97.0); SITE, ABG Left Radial; VENT MODE, BG nasal cannula
--- NOTE | 2018-10-05 09:57 | NUR ---
WOUND CARE: PT NOW ON DIALYSIS. UNABLE TO DO FULL SKIN ASSESSMENT BUT LOWER LEGS AND FEET SWOLLEN WITH VERY DRY SKIN. RECOMMENDATIONS MADE FOR SKIN PROTECTION. DISCUSSED WITH NURSING STAFF. PT STATES IS COMFORTABLE ON CURRENT BED. WILL SEE PRN. [place]ITFIELD IN AGREEMENT WITH PLAN OF CARE.
[2018-10-05] MEDS ORDERED: MINERAL OIL/PETROLATUM,WHITE 120 GM JAR TP PRN (10:00)
--- NOTE | 2018-10-05 10:00 | NUR ---
ICU/RN OFF BIPAP PT OFF BIPAP, PLACE ON 0.5L O2 VIA N/C, TO KEEP O2 SAT AT 90% AND ABOVE. DR. CENTENO ORDERED TO BEGIN RENAL DIET. MONITORING.
[2018-10-05] MEDS: INSULIN REGULAR, HUMAN 100 UNIT/ML 3 ML VIAL SQ PRN ×2 (12:18→22:38)
--- NOTE | 2018-10-05 12:40 | NUR ---
ICU/RN END HD TX PT RECEIVED DIALYSIS TX, REMOVED 3 LITERS OF FLUID, BP 121/83, HR 85. PT TOLERATED TX. MONITORING CONTINUED.
--- NOTE | 2018-10-05 16:00 | NUR ---
ICU/RN AFTERNOON ROUNDS PM CARE PROVIDED. WHILE ON 0.5 O2 VIA N/C, PT REQUESTED TO PLACED BACK ON BI-PAP, NO ACUTE CHANGE OF CONDITION. MONITORING CONTINUED.
--- NOTE | 2018-10-05 17:56 | NUR ---
ICU/RN DOWNGRADE REPORT - [facility] REPORT GIVEN TO [facility] NURSE VAMSHI, PT WILL BE TRANSFERRED TO ROOM 115#2 AFTER 1800. PT IS STABLE.
--- NOTE | 2018-10-05 18:45 | NUR ---
ICU/SUPERINTENDENT METERS TO [facility] PT TRANSFERRED TO [facility] ROOM 115#2 VIA BED. PT ENDORSED TO NURSE BONDS TO CONTINUE CARE.
--- NOTE | 2018-10-05 19:15 | NUR ---
TD/RN INITIAL NOTES RECEIVED PT IN BED, HAVING SNACKS, A/OX3. CONTROLLED AFIB ON TELE. ON 0.5L O2 VIA NC, TOLERATING WELL, NO SOB NOTED. NO C/O PAIN AT THIS TIME. RIGHT CHEST WALL HD CATH C/D/I. LEFT AC G20 HEPLOCK INTACT AND PATENT. HOB ELEVATED. SAFETY MEASURES IN PLACED. CALL LIGHT WITHIN EASY REACH. WILL CONT TO MONITOR
--- NOTE | 2018-10-05 19:54 | NUR ---
[facility] RN RECEIVING NOTE RECEIVED PATIENT FROM ICU NURSE. PATIENT A/O X4, STABLE, NO S/S OF DISTRESS. SAFETY MEASURES IN PLACE. CALL LIGHT WITHIN REACH, BED IN LOW LOCKED POSITION. CARE ENDORSED TO MANAGER TRANSIT RN.
--- NOTE | 2018-10-05 19:58 | NUR ---
RT PT PLACED ON AVAPS ON ORDERED NOC SETTINGS. NO SIGNS OF DISTRESS/SOB NOTED. ALARMS SET AND AUDIBLE. VENT CONNECTED TO RED OUTLET. AMBUBAG AT BEDSIDE. WILL CONT TO MONITOR. Addendum: 10/05/18 at 2041 by CLARE DEMARCO RT Amended: Links added.
[2018-10-05] MEDS: ATORVASTATIN 10 MG TABLET PO SCH (21:16)
--- NOTE | 2018-10-05 22:00 | NUR ---
RN NOTES INSULIN DETEMIR NOT AVAILABLE. CALLED COMMERCIAL SHRIMPING CAPTAIN RANDI, PER COMMERCIAL SHRIMPING CAPTAIN, HOSPITAL DOESN'T CARRY DETEMIR, CALL PHARMACY TO CONVERT TO [facility] CALLED AFTER HOUR PHARMACY, SPOKE WITH PATI AGUILAR, PER PHARMACIST, WILL CONVERT [facility] TO [facility].
[2018-10-05] MEDS ORDERED: INSULIN GLARGINE, 100 UNIT/ML CARTRIDGE SQ ONE ×2 (22:18→22:30)
[2018-10-06] VITALS: BP 117/69
[2018-10-06] MEDS: ALBUTEROL HALF STRENGTH 1.25 MG/3 ML VIAL.NEB NEB SCH ×6 (03:44→22:43)
[2018-10-06] MEDS: IPRATROPIUM NEB FS 0.5 MG/2.5 ML AMPUL.NEB NEB SCH ×6 (03:44→22:43)
[2018-10-06 04:00] VITALS: BP 127/64
--- NOTE | 2018-10-06 07:01 | NUR ---
RN NOTES ONGOING HD. PT IN STABLE CONDITION. NO ACUTE CHANGES THROUGHOUT SHIFT. ALL NEEDS ANTICIPATED. SAFETY MEASURES OBSERVED AT ALL TIMES. ENDORSED TO AM SHIFT RN FOR JOVI
[2018-10-06 07:36] LABS: BASOPHILS # (AUTO) 0.1 /CMM (0.0-0.2); BASOPHILS % (AUTO) 1.8 % (0.0-2.0); EOSINOPHILS % (AUTO) 10.2 % (0.0-6.0); HEMATOCRIT 34 % (39-51); HEMOGLOBIN 10.8 g/dL (13.5-17.5); LYMPHOCYTES # (AUTO) 1.1 /CMM (0.8-4.8); LYMPHOCYTES % (AUTO) 17.9 % (20.0-44.0); MEAN CORPUSCULAR HGB CONC 32 g/dl (31.0-36.0); MEAN CORPUSCULAR VOLUME 93 fL (80-96); MONOCYTES # (AUTO) 0.4 /CMM (0.1-1.30); MONOCYTES % (AUTO) 6.2 % (2.0-12.0); NEUTROPHILS # (AUTO) 3.8 /CMM (1.8-8.9); NEUTROPHILS % (AUTO) 63.9 % (43.0-81.0); PLATELET COUNT (AUTO) 92 /CMM (150-450); RED BLOOD CELL COUNT(AUTO) 3.64 MIL/uL (4.5-6.0); WHITE BLOOD COUNT (AUTO) 5.9 K/uL (4.3-11.0)
[2018-10-06 07:54] LABS: CALCIUM, SERUM 8.9 mg/dL (8.5-10.1); CREATININE 5.9 mg/dL (0.6-1.3); MAGNESIUM 2.1 mg/dL (1.8-2.4); PHOSPHORUS 4.5 mg/dL (2.5-4.9); POTASSIUM 4.6 mmol/L (3.5-5.1)
[2018-10-06 08:00] VITALS: BP 113/65
[2018-10-06] MEDS: BLOOD SUGAR DIAGNOSTIC 1 EACH STRIP IN SCH ×4 (08:42→22:02)
[2018-10-06] MEDS: ASPIRIN 81 MG TAB.CHEW PO SCH (08:48)
[2018-10-06] MEDS: CALCIUM ACETATE 667 MG TABLET PO SCH ×3 (08:48→17:18)
[2018-10-06] MEDS: CHOLECALCIFEROL 1,000 UNIT TABLET (VIT D3) PO SCH (08:48)
[2018-10-06] MEDS: VIT B CMPLX 3/FA/VIT C/BIOTIN 1 TAB TABLET PO SCH (08:48)
[2018-10-06] MEDS: GABAPENTIN 100 MG CAPSULE PO SCH ×3 (08:48→17:18)
[2018-10-06] MEDS: PANTOPRAZOLE 40 MG TABLET.DR PO SCH (08:50)
[2018-10-06] MEDS: CARVEDILOL 12.5 MG TABLET PO SCH ×2 (08:52→17:18)
[2018-10-06] MEDS: LOSARTAN POTASSIUM 25 MG TABLET PO SCH ×2 (08:52→17:18)
[2018-10-06 12:00] VITALS: BP 121/68
[2018-10-06] MEDS: INSULIN REGULAR, HUMAN 100 UNIT/ML 3 ML VIAL SQ PRN (12:30)
[2018-10-06] MEDS ORDERED: GUAIFENESIN 300 MG/15 ML UDC PO PRN ×2 (15:30→21:30)
[2018-10-06 16:00] VITALS: BP 114/78
--- NOTE | 2018-10-06 19:15 | NUR ---
TD/RN INITIAL NOTES RECEIVED PT IN BED, A/O X4. ON 1L O2 VIA NC, NO SOB NOTED. FOR NOCTURNAL AVAPS. CONTROLLED AFIB ON TELE. NO C/O PAIN AT THIS TIME. NOTED WITH LEFT CHEST WALL HD CATH, C/D/I. LEFT AC G20 HEPLOCK INTACT AND PATENT. SAFETY MEASURES IN PLACED. CALL LIGHT WITHIN EASY REACH. WILL CONT TO MONITOR
--- NOTE | 2018-10-06 19:30 | NUR ---
RN NOTE PT REMAINED STABLE, REQUESTED PHYSICAL EVAL WHICH IS ORDERED. HD DONE, TOLERATED WELL, CO ABOUT CRAMPING IN R ARM AND BOTH LEGS. AFTER WAS OKAY, DID NOT CO LATER. NEEDS MET, MEDS GIVEN, SAFETY MEASURES IN PLACE. CALL LIGHT WITHIN REACH.
[2018-10-06 20:00] VITALS: BP 133/74
[2018-10-06] MEDS: ATORVASTATIN 10 MG TABLET PO SCH (22:02)
[2018-10-06] MEDS: INSULIN GLARGINE, 100 UNIT/ML CARTRIDGE SQ SCH (22:05)
[2018-10-07] VITALS: BP 114/73
[2018-10-07 04:00] VITALS: BP 123/76
[2018-10-07] MEDS: IPRATROPIUM NEB FS 0.5 MG/2.5 ML AMPUL.NEB NEB SCH ×5 (04:07→20:52)
[2018-10-07] MEDS: ALBUTEROL HALF STRENGTH 1.25 MG/3 ML VIAL.NEB NEB SCH ×5 (04:07→20:52)
--- NOTE | 2018-10-07 06:57 | NUR ---
RN NOTES PT IN STABLE CONDITION. NO ACUTE CHANGES THROUGHOUT SHIFT. SAFETY MEASURES OBSERVED AT ALL TIMES. ALL NEEDS ANTICIPATED. ENDORSED TO AM SHIFT RN FOR JOVI
--- NOTE | 2018-10-07 07:30 | NUR ---
RN NOTES RECEIVED PATIENT IN BED, AWAKE, A/OX4. ABLE TO MAKE NEEDS KNOWN. NO SOB NOTED AT THIS TIME, WITH NASAL CANULA AT 0.5LPM, TOLERATING WELL. NO C/O CHEST PAIN OR ANY KIND OF PAIN AT THIS TIME. CONTROLLED AFIB ON MONITOR. RIGHT CHEST WALL HD CATH C/D/I. LEFT AC G20 HEPLOCK IN PLACE AND INTACT, PATENT ON FLUSHING. HOB ELEVATED. SAFETY MEASURES OBSERVED AND MAINTAINED IN PLACED. ENCOURAGE TO USE CALL LIGHT FOR HELP OR ASSISTANCE. CALL LIGHT WITHIN EASY REACH. WILL CONTINUE TO MONITOR
[2018-10-07 08:00] VITALS: BP 119/78
[2018-10-07] MEDS: LOSARTAN POTASSIUM 25 MG TABLET PO SCH ×2 (09:00→18:04)
[2018-10-07] MEDS: CARVEDILOL 12.5 MG TABLET PO SCH ×2 (09:00→18:04)
[2018-10-07] MEDS: GABAPENTIN 100 MG CAPSULE PO SCH ×3 (09:21→18:05)
[2018-10-07] MEDS: ASPIRIN 81 MG TAB.CHEW PO SCH (09:21)
[2018-10-07] MEDS: VIT B CMPLX 3/FA/VIT C/BIOTIN 1 TAB TABLET PO SCH (09:21)
[2018-10-07] MEDS: BLOOD SUGAR DIAGNOSTIC 1 EACH STRIP IN SCH ×4 (09:21→22:00)
[2018-10-07] MEDS: CHOLECALCIFEROL 1,000 UNIT TABLET (VIT D3) PO SCH (09:21)
[2018-10-07] MEDS: PANTOPRAZOLE 40 MG TABLET.DR PO SCH (09:21)
[2018-10-07] MEDS: CALCIUM ACETATE 667 MG TABLET PO SCH ×3 (09:24→18:04)
[2018-10-07 12:00] VITALS: BP 119/71
[2018-10-07] MEDS: INSULIN REGULAR, HUMAN 100 UNIT/ML 3 ML VIAL SQ PRN (12:54)
[2018-10-07 16:00] VITALS: BP 141/83
--- NOTE | 2018-10-07 16:30 | NUR ---
rn notes patient dialyze today. 3 liiters out. patient able to tolerate procedure well. sitting at bed at this time. not on any form of distress. blood pressure at 139/89, hr at 98
--- NOTE | 2018-10-07 19:30 | NUR ---
rn notes endorsed patient for continuity of care. no acute changes within the shift. not on any form of distress. all nursing needs attended and met. safety measures in place at all time. call light placed within easy reach
[2018-10-07 20:00] VITALS: BP 119/63
[2018-10-07] MEDS: INSULIN GLARGINE, 100 UNIT/ML CARTRIDGE SQ SCH (22:00)
[2018-10-08] VITALS: BP 115/72
[2018-10-08] MEDS: IPRATROPIUM NEB FS 0.5 MG/2.5 ML AMPUL.NEB NEB SCH ×5 (00:15→16:12)
[2018-10-08] MEDS: ALBUTEROL HALF STRENGTH 1.25 MG/3 ML VIAL.NEB NEB SCH ×5 (00:15→16:12)
[2018-10-08] MEDS: INSULIN REGULAR, HUMAN 100 UNIT/ML 3 ML VIAL SQ PRN ×2 (00:18→00:23)
[2018-10-08] MEDS: ATORVASTATIN 10 MG TABLET PO SCH (00:25)
[2018-10-08 04:00] VITALS: BP 141/88
--- NOTE | 2018-10-08 07:30 | NUR ---
RN NOTES RECEIVED PATIENT IN BED, S/P DIALYSIS TREATMENT: ONE LITER TAKEN FROM THE PATIENT. AWAKE, A/OX4. ABLE TO MAKE NEEDS KNOWN. NO SOB NOTED AT THIS TIME, WITH NASAL CANULA AT 2LPM, TOLERATING WELL. NO C/O CHEST PAIN OR ANY KIND OF PAIN AT THIS TIME. CONTROLLED AFIB ON MONITOR HR ON THE 80'S. RIGHT CHEST WALL HD CATH C/D/I. LEFT AC G20 HEPLOCK IN PLACE AND INTACT, PATENT ON FLUSHING. HOB ELEVATED. SAFETY MEASURES OBSERVED AND MAINTAINED IN PLACED. ENCOURAGE TO USE CALL LIGHT FOR HELP OR ASSISTANCE. CALL LIGHT WITHIN EASY REACH. WILL CONTINUE TO MONITOR
[2018-10-08] MEDS: BLOOD SUGAR DIAGNOSTIC 1 EACH STRIP IN SCH ×2 (07:53→12:34)
[2018-10-08] MEDS: PANTOPRAZOLE 40 MG TABLET.DR PO SCH (07:53)
[2018-10-08] MEDS: CALCIUM ACETATE 667 MG TABLET PO SCH ×3 (07:54→16:40)
[2018-10-08] MEDS: LOSARTAN POTASSIUM 25 MG TABLET PO SCH ×2 (07:54→16:40)
[2018-10-08] MEDS: ASPIRIN 81 MG TAB.CHEW PO SCH (07:54)
[2018-10-08] MEDS: CARVEDILOL 12.5 MG TABLET PO SCH ×2 (07:55→16:40)
[2018-10-08] MEDS: VIT B CMPLX 3/FA/VIT C/BIOTIN 1 TAB TABLET PO SCH (07:56)
[2018-10-08] MEDS: GABAPENTIN 100 MG CAPSULE PO SCH ×3 (07:56→16:40)
[2018-10-08] MEDS: CHOLECALCIFEROL 1,000 UNIT TABLET (VIT D3) PO SCH (07:59)
[2018-10-08 08:00] VITALS: BP 107/64
[2018-10-08 12:00] VITALS: BP_SYST 103; BP_SYST 98; BP_DIAS 53; BP_DIAS 60
[2018-10-08] MEDS: PROSOURCE / PROSTAT (PYXIS) 30 ML UDC PO SCH ×2 (14:54→16:41)
[2018-10-08 16:00] VITALS: BP 112/77
--- NOTE | 2018-10-08 16:30 | NUR ---
RN NOTES PATIENT WITH DISCHARGE ORDER. ORDER NOTED AND CARRIED OUT. CALLED ISHAN MOBLEY TO FOLLOW UP ON THE VACCINATION STATUS OF THE PATIENT AND GIVE REPORT FOR CONTINUITY OF CARE. SPOKE TO FARA.
[2018-10-08 16:40] VITALS: BP 112/77
--- NOTE | 2018-10-08 18:33 | NUR ---
RN NOTES PATIENT DISCHARGED TO [facility]. ALL QUESTIONS AND CONCERNS ADDRESSED APPROPRIATELY. DISCHARGE AND MEDICATIONS INSTRUCTIONS GIVEN TO PATIENT WELL. ALL BELONGINGS RETURNED AND ACCOUNTED FOR, RETURNED TO PATIENT SINCE PATIENT REQUESTED TO KEEP GOWN IN PLACE. ID BAND REMOVED, IV LINE REMOVED. PATIENT TRANSFERRED OUT FROM THE UNIT VIA GURNEY ACCOMPANIED BY 2 EMT.
[2018-10-09 03:08] LABS: HEPATITIS Be AB Negative (Negative)
== END 2018-10-08 18:33 | disposition home or self-care (01) | DRG 291 ==
LOC: ER 09:08 → TELE 10:59 → ICU 12:30 → TELE-TD 10-05 18:35 → TELE1 10-08 14:57
PROVIDERS: ADMIT Nurse Practitioner Acute Care; ATTEND Nurse Practitioner Acute Care
PROC: 5A09457 Assistance with Respiratory Ventilation, 24-96 Consecutive Hours, Continuous Positive Airway Pressure (ICD-10-PCS; principal; 2018-10-04)
PROC: 5A1D70Z Performance of Urinary Filtration, Intermittent, Less than 6 Hours Per Day (ICD-10-PCS; 2018-10-04)
PROC: 5A1D70Z Performance of Urinary Filtration, Intermittent, Less than 6 Hours Per Day (ICD-10-PCS; 2018-10-05)
PROC: 5A1D70Z Performance of Urinary Filtration, Intermittent, Less than 6 Hours Per Day (ICD-10-PCS; 2018-10-06)
PROC: 5A1D70Z Performance of Urinary Filtration, Intermittent, Less than 6 Hours Per Day (ICD-10-PCS; 2018-10-07)
PROC: 5A1D70Z Performance of Urinary Filtration, Intermittent, Less than 6 Hours Per Day (ICD-10-PCS; 2018-10-08)
DX: I13.2 Hypertensive heart and chronic kidney disease with heart failure and with stage 5 chronic kidney disease, or end stage renal disease (principal); N18.6 End stage renal disease; I50.23 Acute on chronic systolic (congestive) heart failure; J96.22 Acute and chronic respiratory failure with hypercapnia; E11.22 Type 2 diabetes mellitus with diabetic chronic kidney disease; Z99.2 Dependence on renal dialysis; E78.5 Hyperlipidemia, unspecified; E87.5 Hyperkalemia; Z95.1 Presence of aortocoronary bypass graft; Z91.81 History of falling; Z91.19 Patient's noncompliance with other medical treatment and regimen; Z91.14 Patient's other noncompliance with medication regimen; Z79.82 Long term (current) use of aspirin; Z79.4 Long term (current) use of insulin; Z79.899 Other long term (current) drug therapy; G47.33 Obstructive sleep apnea (adult) (pediatric); I25.10 Atherosclerotic heart disease of native coronary artery without angina pectoris; F17.200 Nicotine dependence, unspecified, uncomplicated; I25.5 Ischemic cardiomyopathy; E11.65 Type 2 diabetes mellitus with hyperglycemia; D63.8 Anemia in other chronic diseases classified elsewhere; I48.91 Unspecified atrial fibrillation
CPT/HCPCS: 36415; 36600; 71045-TC; 80048-TC; 80061-TC; 80076-TC; 82803-TC; 82962-TC; 83735-TC; 83880; 84100-TC; 84484-TC; 85025-TC; 85730-TC; 86704; 86705; 86706; 86707; 87081-TC; 87340; 87350; 90935-TC; 93307-TC; 94660; 94799-TC; A6402; G0378; J1815